=== PATIENT | male | born 1975 | race Caucasian/White ===

== ENCOUNTER 2019-04-26 10:42 | Emergency (ER) | payer SELFPAY ==
[2019-04-26] MEDS ORDERED: NA CHLORIDE 0.9% 1,000 ML ONE (11:17)
[2019-04-26] MEDS ORDERED: ONDANSETRON 4 MG/2 ML VIAL ONE (11:17)
[2019-04-26] MEDS ORDERED: MORPHINE 4 MG/ML SYR ONE (11:17)
[2019-04-26 11:26] LABS: Absolute Lymphocytes (CBC) 2.1 K/uL (0.7-4.9); Basophils % 0.9 % (0-1.3); Hematocrit 48.6 % (39.6-49.0); Lymphocytes % 28.1 % (15.3-44.8); RBC Red Blood Cell Count 5.33 M/uL (4.33-5.43)
[2019-04-26 11:41] LABS: Albumin 4.3 g/dL (3.4-5.0); Bilirubin Direct 0.2 mg/dL (0-0.2); Bilirubin Total 1.1 mg/dL (0.2-1.0); Potassium 3.8 mmol/L (3.5-5.1); Protein, Total 7.8 g/dL (6.4-8.2)
--- NOTE | 2019-04-26 12:17 | RAD REPORT ---
EXAM DESCRIPTION: CT - Abdomen Pelvis W Contrast - 04/26/2019 12:05 pm CLINICAL HISTORY: FLANK PAIN, patient localizes flank pain to the right with nausea and hematuria COMPARISON: None. TECHNIQUE: Biphasic, helical CT imaging of the abdomen and pelvis was performed following 100 ml non -ionic IV contrast. Oral contrast was given. All CT scans are performed using dose optimization technique as appropriate and may include automated exposure control or mA/KV adjustment according to patient size. FINDINGS: No suspicious findings in the lung bases. The liver, spleen, and pancreas show no suspicious findings. Gallbladder and biliary tree are also wi thout suspicious finding. Symmetric renal function is seen with no hydronephrosis or suspicious renal mass. No pyelonephritis o r acute parenchymal process. No bladder abnormalities. No adrenal abnormalities. No dilated bowel loops or bowel wall thickening. Appendix is normal. No acute GI process seen. No free air, free fluid or inflammatory stranding. No hernia, mass or bulky lymphadenopathy. Prosta te gland and seminal vesicles are normal. No acute bone finding. Patient has advanced for age degenerative change at the L5-S1 disc level. IMPRESSION: No hydronephrosis, obstructing calculus or acute finding. No abnormality to explain r ight-sided flank pain. Advanced for age degenerative disc disease at L5-S1.
[2019-04-26] MEDS ORDERED: KETOROLAC 30 MG/ML INJ ONE (15:02)
--- NOTE | 2019-04-26 15:04 | ER ---
Nurse's Notes [facility] Name: Gatito Lyn Age: 43 yrs Sex: Male : 1975 Arrival Date: 04/26/2019 Time: 10:44 Bed 19 Private MD: Diagnosis: Low back pain;Unspecified abdominal pain Presentation: 04/26 10:48 Presenting complaint: Patient states: Right flank pain and nausea x 1 week. Also hb reports bright red blood in stool 3 days ago. Denies fever/diarrhea/urinary s/s. Transition of care: patient was not received from another setting of care. Onset of symptoms was April 18, 2019. Risk Assessment: Do you want to hurt yourself or someone else? Patient reports no desire to harm self or others. Initial Sepsis Screen: Does the patient meet any 2 criteria? No. Patient's initial sepsis screen is negative. Does the patient have a suspected source of infection? No. Patient's initial sepsis screen is negative. Care prior to arrival: None. 10:48 Method Of Arrival: Ambulatory hb 10:48 Acuity: LUCINDA 3 hb Historical: - Allergies: 10:50 No Known Allergies; hb - Home Meds: 10:50 None [Active]; hb - PMHx: 10:50 None; hb - PSHx: 10:50 Arm - Left; hb - Immunization history:: Adult Immunizations up to date. - Social history:: Smoking status: Patient/guardian denies using tobacco. - Ebola Screening: : No symptoms or risks identified at this time. Screenin:50 Abuse screen: Denies threats or abuse. Denies injuries from another. Nutritional mg2 screening: No deficits noted. Tuberculosis screening: No symptoms or risk factors identified. Fall Risk IV access (20 points). Assessment: 11:15 General: Appears in no apparent distress. well groomed, well developed, well nourished, sg Behavior is calm, cooperative, appropriate for age. Pain: Complains of pain in abdomen Quality of pain is described as aching, sharp, stabbing. Neuro: Level of Consciousness is awake, alert, obeys commands, Oriented to person, place, time, Hand Surgeon are equal bilaterally Moves all extremities. Full function Gait is steady, Speech is normal, Facial symmetry appears normal, Pupils are PERRLA. Cardiovascular: Heart tones S1 S2 present Capillary refill is brisk in bilateral fingers Patient's skin is warm and dry. Chest pain is denied. Respiratory: Airway is patent Respiratory effort is even, unlabored, Respiratory pattern is regular, symmetrical. GI: Bowel sounds present X 4 quads. Abd is soft X 4 quads Reports tolerance of fluids, tolerance of food. : No signs and/or symptoms were reported regarding the genitourinary system. EENT: No signs and/or symptoms were reported regarding the EENT system. Derm: Skin is pink, warm \T\ dry. Musculoskeletal: Circulation, motion, and sensation intact. Range of motion: intact in all extremities, Swelling absent. 15:22 Reassessment: Patient appears in no apparent distress at this time. Patient states mg2 feeling better. Patient states symptoms have improved. Vital Signs: 10:50 BP 141 / 91; Pulse 89; Resp 16; Temp 98.4; Pulse Ox 100% on R/A; Weight 76.2 kg; Height hb 6 ft. 1 in. (185.42 cm); Pain 6/10; 12:49 BP 120 / 92; Pulse 67; Resp 18; Pulse Ox 100% on R/A; mg2 14:24 BP 109 / 71; Pulse 55; Resp 18; Pulse Ox 100% on R/A; mg2 15:04 BP 124 / 71; Pulse 56; Resp 18; Temp 98; Pulse Ox 100% on R/A; mg2 10:50 Body Mass Index 22.16 (76.20 kg, 185.42 cm) hb ED Course: 10:44 Patient arrived in ED. as 10:50 Triage completed. hb 10:50 Arm band placed on. hb 10:53 Devante Mercer NP is PHCP. pm1 10:53 Jovani Ruvalcaba MD is Attending Physician. pm1 11:00 Radiology exam delayed due to lab results not completed at this time. (BUN/Creatinine). sw 11:06 Harrison Huizar, RN is Primary Nurse. sg 11:34 Initial lab(s) drawn, by me, sent to lab. Inserted saline lock: 22 gauge in left jb1 antecubital area, using aseptic technique. 14:26 Patient has correct armband on for positive identification. Pulse ox on. NIBP on. Door mg2 closed. Warm blanket given. 14:27 No provider procedures requiring assistance completed. mg2 15:22 IV discontinued, intact, bleeding controlled, No redness/swelling at site. Pressure mg2 dressing applied. Administered Medications: 11:15 Drug: NS 0.9% 1000 ml Route: IV; Rate: 1000 ml; Site: left antecubital; sg 15:04 Follow up: Response: No adverse reaction; IV Status: Completed infusion; IV Intake: mg2 1000ml 11:18 Drug: Zofran 4 mg Route: IVP; Site: left antecubital; sg 12:50 Follow up: Response: No adverse reaction mg2 11:20 Drug: morphine 4 mg {Note: RASS 0.} Route: IVP; Site: left antecubital; sg 12:50 Follow up: Response: No adverse reaction; Marked relief of symptoms; RASS: Alert and mg2 Calm (0) 15:04 Drug: TORadol 30 mg Route: IVP; Site: left antecubital; mg2 15:22 Follow up: Response: No adverse reaction; Marked relief of symptoms mg2 Intake: 15:04 IV: 1000ml; Total: 1000ml. mg2 Outcome: 15:03 Discharge ordered by . pm1 15:22 Discharged to home ambulatory. mg2 15:22 Condition: good 15:22 Discharge instructions given to patient, Instructed on discharge instructions, follow up and referral plans. medication usage, Demonstrated understanding of instructions, follow-up care, medications, Prescriptions given X 3. 15:23 Patient left the ED. mg2 Signatures: Darek Garcia jb1 Harrison Huizar, PARTH ALBA sg Alma Delia Booker Shannon sw Marinas, Patrick, STATISTICAL CLERK STATISTICAL CLERK pm1 Cira Miller RN RN Marcos Layton RN RN mg2 Corrections: (The following items were deleted from the chart) 12:55 12:49 Pulse 67bpm; Resp 18bpm; Pulse Ox 100% RA; mg2 mg2
--- NOTE | 2019-04-26 15:05 | EDPHYS ---
Physician Documentation [facility] Name: Gatito Lyn Age: 43 yrs Sex: Male : 1975 Arrival Date: 04/26/2019 Time: 10:44 Bed 19 Private MD: FRANKY Physician Jovani Ruvalcaba HPI: 04/26 12:00 This 43 yrs old Male presents to ER via Ambulatory with complaints of pm1 Abdominal Pain. 12:00 The patient complains of pain in the left low back. The pain radiates to the left lower pm1 quadrant. Onset: The symptoms/episode began/occurred 1 week(s) ago. Modifying factors: The symptoms are alleviated by nothing. the symptoms are aggravated by nothing. Associated signs and symptoms: Pertinent positives: nausea, vomiting, Pertinent negatives: diarrhea, dysuria, fever. Severity of pain: in the emergency department the pain is actually worse. The patient has not experienced similar symptoms in the past. The patient has not recently seen a physician. Historical: - Allergies: 10:50 No Known Allergies; hb - Home Meds: 10:50 None [Active]; hb - PMHx: 10:50 None; hb - PSHx: 10:50 Arm - Left; hb - Immunization history:: Adult Immunizations up to date. - Social history:: Smoking status: Patient/guardian denies using tobacco. - Ebola Screening: : No symptoms or risks identified at this time. ROS: 12:00 Constitutional: Negative for fever, chills, and weight loss, Eyes: Negative for injury, pm1 pain, redness, and discharge, ENT: Negative for injury, pain, and discharge, Neck: Negative for injury, pain, and swelling, Cardiovascular: Negative for chest pain, palpitations, and edema, Respiratory: Negative for shortness of breath, cough, wheezing, and pleuritic chest pain, Abdomen/GI: Negative for abdominal pain, nausea, vomiting, diarrhea, and constipation. 12:00 : Negative for injury, bleeding, discharge, and swelling, MS/Extremity: Negative for injury and deformity, Skin: Negative for injury, rash, and discoloration, Neuro: Negative for headache, weakness, numbness, tingling, and seizure. 12:00 Back: Positive for flank pain, on the left. Exam: 12:00 Constitutional: This is a well developed, well nourished patient who is awake, alert, pm1 and in no acute distress. Head/Face: Normocephalic, atraumatic. Neck: Trachea midline, no thyromegaly or masses palpated, and no cervical lymphadenopathy. Supple, full range of motion without nuchal rigidity, or vertebral point tenderness. No Meningismus. Chest/axilla: Normal chest wall appearance and motion. Nontender with no deformity. No lesions are appreciated. Cardiovascular: Regular rate and rhythm with a normal S1 and S2. No gallops, murmurs, or rubs. Normal PMI, no JVD. No pulse deficits. Respiratory: Lungs have equal breath sounds bilaterally, clear to auscultation and percussion. No rales, rhonchi or wheezes noted. No increased work of breathing, no retractions or nasal flaring. Abdomen/GI: Soft, non-tender, with normal bowel sounds. No distension or tympany. No guarding or rebound. No evidence of tenderness throughout. 12:00 Skin: Warm, dry with normal turgor. Normal color with no rashes, no lesions, and no evidence of cellulitis. MS/ Extremity: Pulses equal, no cyanosis. Neurovascular intact. Full, normal range of motion. 12:00 Back: pain, that is mild, of the left low back, normal spinal alignment noted, CVA tenderness, is absent, vertebral tenderness, is not appreciated. 12:00 Neuro: Orientation: is normal, Motor: is normal, moves all fours, Sensation: is normal, no obvious gross deficits. Vital Signs: 10:50 BP 141 / 91; Pulse 89; Resp 16; Temp 98.4; Pulse Ox 100% on R/A; Weight 76.2 kg; Height hb 6 ft. 1 in. (185.42 cm); Pain 6/10; 12:49 BP 120 / 92; Pulse 67; Resp 18; Pulse Ox 100% on R/A; mg2 14:24 BP 109 / 71; Pulse 55; Resp 18; Pulse Ox 100% on R/A; mg2 15:04 BP 124 / 71; Pulse 56; Resp 18; Temp 98; Pulse Ox 100% on R/A; mg2 10:50 Body Mass Index 22.16 (76.20 kg, 185.42 cm) MDM: 10:53 Patient medically screened. pm1 15:02 Data reviewed: vital signs. Data interpreted: Pulse oximetry: on room air is 100 %. pm1 Interpretation: normal. 15:02 Counseling: I had a detailed discussion with the patient and/or guardian regarding: the pm1 historical points, exam findings, and any diagnostic results supporting the discharge/admit diagnosis, lab results, radiology results, the need for outpatient follow up, to return to the emergency department if symptoms worsen or persist or if there are any questions or concerns that arise at home. 04/26 10:57 Order name: Basic Metabolic Panel; Complete Time: 12:00 pm1 04/26 10:57 Order name: CBC with Diff pm1 04/26 10:57 Order name: Creatinine for Radiology; Complete Time: 12:00 pm1 04/26 10:57 Order name: Hepatic Function; Complete Time: 12:00 pm1 04/26 10:57 Order name: Lipase; Complete Time: 12:00 pm1 04/26 15:01 Order name: Urine Dipstick--Ancillary (enter results) em1 04/26 10:57 Order name: IV Saline Lock; Complete Time: 11:24 pm1 04/26 10:57 Order name: Labs collected and sent; Complete Time: 11:24 pm1 04/26 10:57 Order name: CT Abd/Pelvis - IV Contrast Only pm1 04/26 14:42 Order name: CT; Complete Time: 14:54 EDMS 04/26 10:57 Order name: Urine Dipstick-Ancillary (obtain specimen); Complete Time: 15:00 pm1 Administered Medications: 11:15 Drug: NS 0.9% 1000 ml Route: IV; Rate: 1000 ml; Site: left antecubital; sg 15:04 Follow up: Response: No adverse reaction; IV Status: Completed infusion; IV Intake: mg2 1000ml 11:18 Drug: Zofran 4 mg Route: IVP; Site: left antecubital; sg 12:50 Follow up: Response: No adverse reaction mg2 11:20 Drug: morphine 4 mg {Note: RASS 0.} Route: IVP; Site: left antecubital; sg 12:50 Follow up: Response: No adverse reaction; Marked relief of symptoms; RASS: Alert and mg2 Calm (0) 15:04 Drug: TORadol 30 mg Route: IVP; Site: left antecubital; mg2 15:22 Follow up: Response: No adverse reaction; Marked relief of symptoms mg2 Disposition: 15:32 Co-signature as Attending Physician, Jovani Ruvalcaba MD I agree with the assessment and [facility] plan of care. Disposition: 04/26/19 15:03 Discharged to Home. Impression: Low back pain, Unspecified abdominal pain. - Condition is Stable. - Discharge Instructions: Abdominal Pain, Adult, Flank Pain, Adult. - Prescriptions for Zofran 4 mg Oral Tablet - take 1 tablet by ORAL route every 12 hours As needed; 20 tablet. Tylenol- Codeine #3 300-30 mg Oral Tablet - take 2 tablets by ORAL route every 6 hours As needed; 20 tablet. Cyclobenzaprine 10 mg Oral Tablet - take 1 tablet by ORAL route every 8 hours As needed; 30 tablet. - Medication Reconciliation Form, Thank You Letter, Antibiotic Education, Prescription Opioid Use form. - Follow up: Emergency Department; When: As needed; Reason: Worsening of condition. Follow up: Private Physician; When: 2 - 3 days; Reason: Recheck today's complaints, Continuance of care, Re-evaluation by your physician. - Problem is new. - Symptoms have improved. Signatures: Dispatcher [employer] EDMS Harrison Huizar RN RN sg Anderson, Corey, MD MD cha Marinas, Patrick, OPHTHALMIC SURGICAL ASSISTANT OPHTHALMIC SURGICAL ASSISTANT pm1 Cira Miller RN RN Marcos Layton RN RN mg2 Corrections: (The following items were deleted from the chart) 15:23 15:03 04/26/2019 15:03 Discharged to Home. Impression: Low back pain; Unspecified mg2 abdominal pain. Condition is Stable. Forms are Medication Reconciliation Form, Thank You Letter, Antibiotic Education, Prescription Opioid Use. Follow up: Emergency Department; When: As needed; Reason: Worsening of condition. Follow up: Private Physician; When: 2 - 3 days; Reason: Recheck today's complaints, Continuance of care, Re-evaluation by your physician. Problem is new. Symptoms have improved. pm1
[2019-04-26 16:29] LABS: Urine Blood TRACE (NEG); Urine Glucose NEGATIVE (NEG); Urine Protein NEGATIVE (NEG); Urine Specific Gravity <1.005 (1.005-1.030)
== END 2019-04-26 15:23 | disposition home or self-care (01) ==
LOC: ER 10:42
DX: R10.32 Left lower quadrant pain (principal)
CPT/HCPCS: 36415; 74177; 80048; 80076; 81003; 83690; 85025; 96361; 96374; 96375; 99284; J2405; J7030; Q9967

== ENCOUNTER 2019-07-06 08:03 | Emergency (ER) | payer SELFPAY ==
--- OUTSIDE RECORDS SUMMARY | 2019-07-06 08:06 | XMS REPORT ---
:1975 [facility] Address [address] [place] [address] Care Team Providers Name Role Phone LINDA EVETTE Gannon Unavailable Unavailable Payers Payer Name Policy Type Policy Number Effective Date Expiration Date Problems This patient has no known problems. Allergies, Adverse Reactions, Alerts Allergy Allergy Status Severity Reaction(s) Onset Inactive Treating Comments Name Type Date Date Clinician No Known DA Active U 2018-10 Allergies - 00:00:0 0 No Known DA Active U 2018-08 Allergies - 00:00:0 0 Medications This patient has no known medications. Results Test Description Test Time Test Comments Text Results Atomic Results Result Comments URINALYSIS COMPLETE 2018-11-10 12:02:00 Test Item Value Reference Range Comments UA COLOR (test code=COLU) DARK YELLOW YELLOW UA APPEARANCE (test code=APPU) SLIGHTLY CLOUDY CLEAR UA GLUCOSE DIPSTICK (test code=DGLUU) NEGATIVE mg/dL NEGATIVE UA BILIRUBIN DIPSTICK (test code=BILU) NEGATIVE mg/dL NEGATIVE UA KETONE DIPSTICK (test code=KETU) 20 (Small) mg/dL NEGATIVE UA SPECIFIC GRAVITY (test code=SGU) 1.029 1.001-1.035 UA BLOOD DIPSTICK (test code=ZACK) Negative NEGATIVE UA PH DIPSTICK (test code=CYNDI) 8.0 5.0-8.0 UA PROTEIN DIPSTICK (test code=PROU) 30 (1+) mg/dL NEGATIVE UA UROBILINIOGEN DIPSTICK (test code=URO) 4.0 (2+) mg/dL NEGATIVE UA NITRITE DIPSTICK (test code=STUART) NEGATIVE NEGATIVE UA LEUKOCYTE ESTERASE W REFLEX (test code=LEUUR) NEGATIVE NEGATIVE UA WBC (test code=WBCU) 0-5 #/HPF 0-5 UA RBC (test code=RBCU) 0-2 #/HPF 0-5 UA EPITHELIAL CELLS (test code=EPIU) FEW per HPF FEW UA MUCUS (test code=MUCU) MANY #/LPF FEW Urine Source? Clean CatchURINALYSIS [id number] 11:54:00 Test Item Value Reference Range Comments UA COLOR (test code=COLU) DARK YELLOW YELLOW UA APPEARANCE (test code=APPU) SLIGHTLY CLOUDY CLEAR UA GLUCOSE DIPSTICK (test code=DGLUU) NEGATIVE mg/dL NEGATIVE UA BILIRUBIN DIPSTICK (test code=BILU) NEGATIVE mg/dL NEGATIVE UA KETONE DIPSTICK (test code=KETU) 20 (Small) mg/dL NEGATIVE UA SPECIFIC GRAVITY (test code=SGU) 1.029 1.001-1.035 UA BLOOD DIPSTICK (test code=ZACK) Negative NEGATIVE UA PH DIPSTICK (test code=CYNDI) 8.0 5.0-8.0 UA PROTEIN DIPSTICK (test code=PROU) 30 (1+) mg/dL NEGATIVE UA UROBILINIOGEN DIPSTICK (test 4.0 (2+) mg/dL NEGATIVE code=URO) UA NITRITE DIPSTICK (test code=STUART) NEGATIVE NEGATIVE UA LEUKOCYTE ESTERASE W REFLEX (test NEGATIVE NEGATIVE code=LEUUR) UA WBC (test code=WBCU) per HPF 0-5 Urine Source? Clean CatchBASIC METABOLIC [id number] 10:00:00 Test Item Value Reference Range Comments SODIUM (test code=NA) 138 mmol/L 136-145 POTASSIUM (test code=K) 3.8 mmol/L 3.5-5.1 CHLORIDE (test code=CL) 106.0 mmol/L 98-107 CARBON DIOXIDE (test 24.0 mmol/L 21-32 code=CO2) ANION GAP (test code=GAP) 11.8 10-20 GLUCOSE (test code=GLU) 106 mg/dL 74-106 BLOOD UREA NITROGEN (test 13 mg/dL 7-18 code=BUN) GLOMERULAR FILTRATION RATE > 60 mL/min >=60 Estimated GFR by using (test code=GFR) Modified MDRD formula.Chronic kidney disease is defined as either kidney damageor GFR <60 mL/min/1.73 m2 for >3 months. CREATININE (test code=CREAT) 1.00 mg/dL 0.7-1.3 BUN/CREATININE RATIO (test 12.6 1020 code=BUN/CREA) CALCIUM (test code=CA) 9.1 mg/dL 8.5-10.1 HEPATIC FUNCTION [id number] 10:00:00 Test Item Value Reference Range Comments TOTAL PROTEIN (test code=PROT) 7.9 gram/dL 6.4-8.2 ALBUMIN (test code=ALB) 4.3 g/dL 3.4-5.0 GLOBULIN (test code=GLOB) 3.6 gram/dL 2.7-4.2 ALBUMIN/GLOBULIN RATIO (test 1.2 0.75-1.50 code=A/G) BILIRUBIN TOTAL (test 0.80 mg/dL 0.0-1.0 code=BILT) BILIRUBIN DIRECT (test 0.18 mg/dL 0.0-0.20 code=BILD) SGOT/AST (test code=AST) 15 IUnit/L 15-37 SGPT/ALT (test code=ALT) 24 IUnit/L 12-78 ALKALINE PHOSPHATASE TOTAL 110 IUnit/L 45-117 Note change in reference (test code=ALKP) range due to change in reagent. [id number] 10:00:00 Test Item Value Reference Range Comments LIPASE (test code=LIP) 96 U/L 73.0-393.0 BASIC METABOLIC [id number] 09:53:00 Test Item Value Reference Range Comments SODIUM (test code=NA) 138 mmol/L 136-145 POTASSIUM (test code=K) 3.8 mmol/L 3.5-5.1 CHLORIDE (test code=CL) 106.0 mmol/L 98-107 CARBON DIOXIDE (test code=CO2) mmol/L 21-32 ANION GAP (test code=GAP) 10-20 GLUCOSE (test code=GLU) mg/dL 74-106 BLOOD UREA NITROGEN (test code=BUN) mg/dL 7-18 GLOMERULAR FILTRATION RATE (test code=GFR) mL/min >=60 CREATININE (test code=CREAT) mg/dL 0.7-1.3 BUN/CREATININE RATIO (test code=BUN/CREA) 10-20 CALCIUM (test code=CA) mg/dL 8.5-10.1 HEPATIC FUNCTION [id number] 09:53:00 Test Item Value Reference Range Comments TOTAL PROTEIN (test code=PROT) gram/dL 6.4-8.2 ALBUMIN (test code=ALB) g/dL 3.4-5.0 GLOBULIN (test code=GLOB) gram/dL 2.7-4.2 ALBUMIN/GLOBULIN RATIO (test code=A/G) 0.75-1.50 BILIRUBIN TOTAL (test code=BILT) mg/dL 0.0-1.0 BILIRUBIN DIRECT (test code=BILD) mg/dL 0.0-0.20 SGOT/AST (test code=AST) IUnit/L 15-37 SGPT/ALT (test code=ALT) IUnit/L 12-78 ALKALINE PHOSPHATASE TOTAL (test code=ALKP) IUnit/L 45-117 [id number] 09:53:00 Test Item Value Reference Range Comments LIPASE (test code=LIP) U/L 73.0-393.0 CBC W/O [id number] 09:43:00 Test Item Value Reference Range Comments WHITE BLOOD CELL (test code=WBC) 6.8 K/mm3 4.5-12.5 RED BLOOD CELL (test code=RBC) 5.48 mill/mm3 4.0-5.8 HEMOGLOBIN (test code=HGB) 16.8 gram/dL 13.0-17.5 HEMATOCRIT (test code=HCT) 48.8 % 42.0-52.0 MEAN CELL VOLUME (test code=MCV) 89.1 fL 80-98 MEAN CELL HGB (test code=MCH) 30.7 picogram 27.0-33.0 MEAN CELL HGB CONCETRATION (test code=MCHC) 34.4 gram/dL 33.0-36.0 RED CELL DISTRIBUTION WIDTH (test code=RDW) 11.5 % 11.6-16.2 PLATELET COUNT (test code=PLT) 223 K/mm3 150-450 MEAN PLATELET VOLUME (test code=MPV) 8.4 fL 6.7-11.0 CBC W/O [id number] 09:41:00 Test Item Value Reference Range Comments WHITE BLOOD CELL (test code=WBC) K/mm3 4.5-12.5 RED BLOOD CELL (test code=RBC) mill/mm3 4.0-5.8 HEMOGLOBIN (test code=HGB) 16.8 gram/dL 13.0-17.5 HEMATOCRIT (test code=HCT) 48.8 % 42.0-52.0 MEAN CELL VOLUME (test code=MCV) fL 80-98 MEAN CELL HGB (test code=MCH) picogram 27.0-33.0 MEAN CELL HGB CONCETRATION (test code=MCHC) gram/dL 33.0-36.0 RED CELL DISTRIBUTION WIDTH (test code=RDW) % 11.6-16.2 PLATELET COUNT (test code=PLT) K/mm3 150-450 MEAN PLATELET VOLUME (test code=MPV) fL 6.7-11.0 - CT ABD PELVIS [id number] 10:43:00 Name: GUNNER WYNNDENISHA Candelario [facility] : 1975 Age/S: 43 / M [address] [facility] Unit #: [id number] Loc: [place] [address] Phys: Pietro Wallace MD Acct: [id number] Dis Date: Status : REG ER PHONE #: [phone] Exam Date: 09/22/2018 1005 FAX #: [phone] Reason: L sidedabd pain EXAMS: CPTCODE: [id number] CT ABD PELVIS W/CONT 94894 HISTORY: Left-sided abdominal pain. COMPARISON: None available. CT abdomen and pelvis with IV contrast: 100 mL of Isovue-370. Automated exposure control. CT of abdomen: The lung bases are clear. The liver is enhancing homogeneously. No discrete mass. Gallbladder is without radiopaque stones. The spleen is unremarkable. The stomach distended incompletely with thickened distal esophagus. Pancreas enhances homogeneously. Unremarkable adrenals. Kidneys are free from hydroureteronephrosis. Homogeneous enhancement. Bilateral excretion. No pathologic adenopathy. Well-opacified abdominal and pelvic vasculature. No bowel obstruction or colitis or diverticulitis or enteritis. CT pelvis: Appendix is normal. Pelvic bowel loops are unobstructed. Unremarkable urinary bladder. The prostate is not enlarged. No pelvic pathologic adenopathy. No free fluid or free air or abscess. Subcutaneous tissues and musculature are normal in appearance. No lytic or blastic lesions are noted within the bony skeleton. Bone island within the left acetabulum. IMPRESSION: No acute intra-abdominal or intrapelvic pathology. PAGE 1 Signed Report (CONTINUED) Name: CHRISTOPHER WYNN [facility] : 1975 Age/S: 43 / M [address] [facility] Unit #: [id number] Loc: [place] [address] Phys: Pietro Wallace MD Acct: [id number] Dis Date: Status: REG ER PHONE #: [phone] Exam Date: 09/22/2018 1006 FAX #: [phone] Reason: L sided abd pain EXAMS: CPT CODE : [id number] CT ABD PELVIS W/CONT 19023 < Continued> at 1043 Reported and signed by: Jourdan Stark M.D. CC: Pietro Wallace MD Technologist:RT Sushila(R),CT CTDI: DLP: Trnscb Date/Time: 09/22/2018 (1043) [email or web address] Orig Print D/T: S: 09/22/2018 (1046) CTDI: DLP: PAGE 2 Signed [id number] 09:49:00 Test Item Value Reference Range Comments TROPONIN-I (test code=TROPI) <0.015 ng/mL 0-0.045 BASIC METABOLIC [id number] 09:42:00 Test Item Value Reference Range Comments SODIUM (test code=NA) 141 mmol/L 136-145 POTASSIUM (test code=K) 4.2 mmol/L 3.5-5.1 CHLORIDE (test code=CL) 106.0 mmol/L 98-107 CARBON DIOXIDE (test 29.0 mmol/L 21-32 code=CO2) ANION GAP (test code=GAP) 10.2 10-20 GLUCOSE (test code=GLU) 103 mg/dL 74-106 BLOOD UREA NITROGEN (test 9 mg/dL 7-18 code=BUN) GLOMERULAR FILTRATION RATE > 60 mL/min >=60 Estimated GFR by using (test code=GFR) Modified MDRD formula.Chronic kidney disease is defined as either kidney damageor GFR <60 mL/min/1.73 m2 for >3 months. CREATININE (test code=CREAT) 0.90 mg/dL 0.7-1.3 BUN/CREATININE RATIO (test 10.1 10-20 code=BUN/CREA) CALCIUM (test code=CA) 8.6 mg/dL 8.5-10.1 HEPATIC FUNCTION [id number] 09:42:00 Test Item Value Reference Range Comments TOTAL PROTEIN (test code=PROT) 8.0 gram/dL 6.4-8.2 ALBUMIN (test code=ALB) 4.1 g/dL 3.4-5.0 GLOBULIN (test code=GLOB) 3.9 gram/dL 2.7-4.2 ALBUMIN/GLOBULIN RATIO (test 1.1 0.75-1.50 code=A/G) BILIRUBIN TOTAL (test 0.30 mg/dL 0.0-1.0 code=BILT) BILIRUBIN DIRECT (test 0.08 mg/dL 0.0-0.20 code=BILD) SGOT/AST (test code=AST) 46 IUnit/L 15-37 SGPT/ALT (test code=ALT) 71 IUnit/L 12-78 ALKALINE PHOSPHATASE TOTAL 136 IUnit/L 45-117 Note change in reference (test code=ALKP) range due to change in reagent. [id number] 09:42:00 Test Item Value Reference Range Comments LIPASE (test code=LIP) 99 U/L 73.0-393.0 BASIC METABOLIC [id number] 09:35:00 Test Item Value Reference Range Comments SODIUM (test code=NA) 141 mmol/L 136-145 POTASSIUM (test code=K) 4.2 mmol/L 3.5-5.1 CHLORIDE (test code=CL) 106.0 mmol/L 98-107 CARBON DIOXIDE (test code=CO2) mmol/L 21-32 ANION GAP (test code=GAP) 10-20 GLUCOSE (test code=GLU) mg/dL 74-106 BLOOD UREA NITROGEN (test code=BUN) mg/dL 7-18 GLOMERULAR FILTRATION RATE (test code=GFR) mL/min >=60 CREATININE (test code=CREAT) mg/dL 0.7-1.3 BUN/CREATININE RATIO (test code=BUN/CREA) 10-20 CALCIUM (test code=CA) mg/dL 8.5-10.1 HEPATIC FUNCTION [id number] 09:35:00 Test Item Value Reference Range Comments TOTAL PROTEIN (test code=PROT) gram/dL 6.4-8.2 ALBUMIN (test code=ALB) g/dL 3.4-5.0 GLOBULIN (test code=GLOB) gram/dL 2.7-4.2 ALBUMIN/GLOBULIN RATIO (test code=A/G) 0.75-1.50 BILIRUBIN TOTAL (test code=BILT) mg/dL 0.0-1.0 BILIRUBIN DIRECT (test code=BILD) mg/dL 0.0-0.20 SGOT/AST (test code=AST) IUnit/L 15-37 SGPT/ALT (test code=ALT) IUnit/L 12-78 ALKALINE PHOSPHATASE TOTAL (test code=ALKP) IUnit/L 45-117 [id number] 09:35:00 Test Item Value Reference Range Comments LIPASE (test code=LIP) U/L 73.0-393.0 CBC W/O [id number] 09:16:00 Test Item Value Reference Range Comments WHITE BLOOD CELL (test code=WBC) 6.6 K/mm3 4.5-12.5 RED BLOOD CELL (test code=RBC) 5.23 mill/mm3 4.0-5.8 HEMOGLOBIN (test code=HGB) 16.2 gram/dL 13.0-17.5 HEMATOCRIT (test code=HCT) 49.4 % 42.0-52.0 MEAN CELL VOLUME (test code=MCV) 94.5 fL 80-98 MEAN CELL HGB (test code=MCH) 31.0 picogram 27.0-33.0 MEAN CELL HGB CONCETRATION (test code=MCHC) 32.8 gram/dL 33.0-36.0 RED CELL DISTRIBUTION WIDTH (test code=RDW) 11.8 % 11.6-16.2 PLATELET COUNT (test code=PLT) 214 K/mm3 150-450 MEAN PLATELET VOLUME (test code=MPV) 8.5 fL 6.7-11.0 URINALYSIS [id number] 08:56:00 Test Item Value Reference Range Comments UA COLOR (test code=COLU) STRAW YELLOW UA APPEARANCE (test code=APPU) CLEAR CLEAR UA GLUCOSE DIPSTICK (test code=DGLUU) NEGATIVE mg/dL NEGATIVE UA BILIRUBIN DIPSTICK (test code=BILU) NEGATIVE mg/dL NEGATIVE UA KETONE DIPSTICK (test code=KETU) Negative mg/dL NEGATIVE UA SPECIFIC GRAVITY (test code=SGU) 1.006 1.001-1.035 UA BLOOD DIPSTICK (test code=ZACK) Negative NEGATIVE UA PH DIPSTICK (test code=CYNDI) 7.0 5.0-8.0 UA PROTEIN DIPSTICK (test code=PROU) Negative mg/dL NEGATIVE UA UROBILINIOGEN DIPSTICK (test code=URO) NEGATIVE mg/dL NEGATIVE UA NITRITE DIPSTICK (test code=STUART) NEGATIVE NEGATIVE UA LEUKOCYTE ESTERASE W REFLEX (test NEGATIVE NEGATIVE code=LEUUR) UA WBC (test code=WBCU) 0-5 #/HPF 0-5 Urine Source? Clean CatchURINALYSIS [id number] 08:54:00 Test Item Value Reference Range Comments UA COLOR (test code=COLU) STRAW YELLOW UA APPEARANCE (test code=APPU) CLEAR CLEAR UA GLUCOSE DIPSTICK (test code=DGLUU) NEGATIVE mg/dL NEGATIVE UA BILIRUBIN DIPSTICK (test code=BILU) NEGATIVE mg/dL NEGATIVE UA KETONE DIPSTICK (test code=KETU) Negative mg/dL NEGATIVE UA SPECIFIC GRAVITY (test code=SGU) 1.006 1.001-1.035 UA BLOOD DIPSTICK (test code=ZACK) Negative NEGATIVE UA PH DIPSTICK (test code=CYNDI) 7.0 5.0-8.0 UA PROTEIN DIPSTICK (test code=PROU) Negative mg/dL NEGATIVE UA UROBILINIOGEN DIPSTICK (test code=URO) NEGATIVE mg/dL NEGATIVE UA NITRITE DIPSTICK (test code=STUART) NEGATIVE NEGATIVE UA LEUKOCYTE ESTERASE W REFLEX (test NEGATIVE NEGATIVE code=LEUUR) UA WBC (test code=WBCU) per HPF 0-5 Urine Source? Clean Catch- XR CHEST 1 [id number] 08:23:00 FAX: Pietro Wallace MD [phone] [place]: St: REG Name: CHRISTOPHER WYNN [facility] : 1975 Age/S: 43/M [address] [facility] Unit#: [id number] Loc: [place] [address] Phys: Pietro Wallace MD Acct: [id number] Dis Date: Status: REG ER PHONE #: [phone] Exam Date: 2018 FAX #: [phone] Reason: cough EXAMS: CPT CODE: [id number] XR CHEST 1 V 04464 HISTORY: Abdominal pain. COMPARISON: None available. No acute infiltrates, effusion or congestion is noted. The cardiac and mediastinal silhouette are within normal limits. IMPRESSION: No acute infiltrates, effusion or congestion. at 0823 Reported and signed by: Jourdan Stark M.D. CC: Pietro Wallace MD Technologist: Radha Adame(Norman); STUDENT TECHNOLOGIST Trnscrd Date/Time/By: 09/22/2018 (0823) : By: [email or web address] Orig Print D/T: S: (2426) PAGE 1 Signed ReportCHEST 2 VIEWS [place] [address] Patient Name: CHRISTOPHER WYNN MR #: [id number] : 1975 Age/Sex: 42/M Req #: [id number] Adm Physician: Ordered by: RON AVITIA BRONZE CHASER Report #: [id number] Location: ER Room/Bed: Procedure: [id number] DX/CHEST 2 VIEWS Exam Date: 09/26/17 Exam Time: 1819 REPORT STATUS : Signed EXAMINATION: Chest, CHEST 2 VIEWS INDICATION: Chest pain COMPARISON: None FINDINGS: LINES: None. Heart: Normal cardiac silhouette. Vascular: The pulmonary vasculature is within normal limits. Mediastinum: No mediastinal, hilar, or axillary mass or lymphadenopathy. Lungs: No parenchymal mass. No focal consolidation. Bilateral nipple shadows. Pleura: No pleural effusion. No pneumothorax. Bones: No acute osseous abnormality. Soft tissues: Normal. Impression: Noacute radiographic abnormality. Signed by: Dr. Brandy Mars M.D. on 09/26/2017 6:33 PM Dictated By: BRANDY MARS MD 32 Transcribed By: SHRAVAN on 09/26/171832 COPY TO: RON AVITIA NP
--- OUTSIDE RECORDS SUMMARY | 2019-07-06 08:06 | XMS REPORT | Continuity of Care Document ---
:1975 Author Organization [facility] Address [address] [place] [address] Phone Unavailable Care Team Providers Name Role Phone NO, PCP Primary Care Physician Unavailable Insurance Providers Guarantor Gatito Lyn Address [address] [place] [address] Email [facility] Policy Number [id number] Subscriber's Name Gatito Lyn Relationship 18 Self / Same As Patient Advance Directives Directive Response Recorded Date/Time Does the patient have an advance directive? No 12/18/16 3:41pm If yes, is advance directive on file with [facility]? No 12/18/16 3:41pm If not on file with [facility] will patient provide a copy? No 12/18/16 3:41pm Do you have a Directive to Physician? No 09/26/17 7:01pm Do you have a Medical Power of Contractor Field Hauling? No 09/26/17 7:01pm Do you have an out of hospital Do Not Resuscitate Order? No 09/26/17 7:01pm Do you have any special needs we should be aware of? No 09/26/17 7:01pm Do you have a support person here with you today? Yes 09/26/17 7:01pm Did patient receive Notice of Privacy Practices? Yes 09/26/17 7:01pm Did patient receive patient rights and responsibilities? Yes 09/26/17 7:01pm Problems No problem information available. Medications No medication information available. Social History Smoking Status Start Date Stop Date Current every day smoker Hospital Discharge Instructions No hospital discharge instruction information available. Plan of Care Discharge Date 09/26/17 9:12pm Disposition HOME, SELF-CARE Condition at Discharge Stable Instructions/Education Provided Bronchitis (Acute) - Adult Forms Provided Work/School Excuse Prescriptions See Medication Section Referrals VISHAL SMALLS MD Address: [address] [place] [id number] Additional Instructions/Education 1. increase oral fluids 2. tylenol and motrin as needed for fever 3. follow up with your dovctor in 1-2 days without fail 4. return to ed as needed Functional Status No functional status information available. Allergies, Adverse Reactions, Alerts No known allergies. Immunizations No immunization information available. Vital Signs Acute Vital Signs Vital Response Date/Time Temperature (Fahrenheit) 97.8 degrees F (97.6 - 99.5) 09/26/2017 9:06pm Pulse Pulse Rate (adult) 88 bpm (60 - 90) 09/26/2017 9:06pm Respiratory Rate 16 bpm (12 - 24) 09/26/2017 9:06pm Blood Pressure 128/74 mm Hg 09/26/2017 9:06pm Height 6 ft 0 in 09/26/2017 5:43pm Weight 150 lb 09/26/2017 5:43pm Body Mass Index 20.3 kg/m^2 09/26/2017 5:43pm Results Laboratory Results Test Name Result Units Flags Reference Collection Result Comments Date/Time Date/Time Urine Color STRAW YELLOW 12/18/2016 12/18/2016 2:25pm 3:29pm Urine Clarity CLEAR CLEAR 12/18/2016 12/18/2016 2:25pm 3:29pm Urine Specific 1.020 1.010-1.025 12/18/2016 12/18/2016 [place] 2:25pm 3:29pm Urine pH 6.5 5 - 7 12/18/2016 12/18/2016 2:25pm 3:29pm Urine Leukocyte NEGATIVE NEGATIVE 12/18/2016 12/18/2016 [place] 2:25pm 3:29pm Urine Nitrite NEGATIVE NEGATIVE 12/18/2016 12/18/2016 2:25pm 3:29pm Urine Protein NEGATIVE NEGATIVE 12/18/2016 12/18/2016 2:25pm 3:29pm Urine Glucose (UA) NEGATIVE NEGATIVE 12/18/2016 12/18/2016 2:25pm 3:29pm Urine Ketones NEGATIVE NEGATIVE 12/18/2016 12/18/2016 2:25pm 3:29pm Urine Urobilinogen 0.2 mg/dL 0.2 - 1 12/18/2016 12/18/2016 2:25pm 3:29pm Urine Bilirubin NEGATIVE NEGATIVE 12/18/2016 12/18/2016 2:25pm 3:29pm Urine Blood TRACE H NEGATIVE 12/18/2016 12/18/2016 2:25pm 3:29pm Urine WBC 0-5 /HPF 0-5 12/18/2016 12/18/2016 2:25pm 3:44pm Urine RBC 6-10 /HPF H 0-5 12/18/2016 12/18/2016 2:25pm 3:44pm Urine Bacteria RARE /HPF NONE 12/18/2016 12/18/2016 2:25pm 3:44pm Urine Epithelial RARE /LPF NONE 12/18/2016 12/18/2016 Cells 2:25pm 3:44pm Amylase Level 69 U/L 25-125 12/18/2016 12/18/2016 3:53pm 4:28pm Lipase 27 U/L 8-78 12/18/2016 12/18/2016 3:53pm 4:28pm White Blood Count 11.01 x10e3/u H 4.8-10.8 09/26/2017 09/26/2017 L 5:51pm 6:26pm Red Blood Count 5.18 x10e6/u 4.3-5.7 09/26/2017 09/26/2017 L 5:51pm 6:26pm Hemoglobin 16.6 g/dL 14.0-18.0 09/26/2017 09/26/2017 5:51pm 6:26pm Hematocrit 47.3 % 38.2-49.6 09/26/2017 09/26/2017 5:51pm 6:26pm Mean Corpuscular 91.3 fL 81-99 09/26/2017 09/26/2017 Volume 5:51pm 6:26pm Mean Corpuscular 32.0 pg 28-32 09/26/2017 09/26/2017 Hemoglobin 5:51pm 6:26pm Mean Corpuscular 35.1 g/dL H 31-35 09/26/2017 09/26/2017 Hemoglobin Concent 5:51pm 6:26pm Red Cell 11.6 % L 11.7-14.4 09/26/2017 09/26/2017 Distribution Width 5:51pm 6:26pm Platelet Count 145 x10e3/u 140-360 09/26/2017 09/26/2017 L 5:51pm 6:26pm Neutrophils (%) 69.3 % 38.7-80.0 09/26/2017 09/26/2017 (Auto) 5:51pm 6:26pm Lymphocytes (%) 19.9 % 18.0-39.1 09/26/2017 09/26/2017 (Auto) 5:51pm 6:26pm Monocytes (%) 10.0 % 4.4-11.3 09/26/2017 09/26/2017 (Auto) 5:51pm 6:26pm Eosinophils (%) 0.3 % 0.0-6.0 09/26/2017 09/26/2017 (Auto) 5:51pm 6:26pm Basophils (%) 0.2 % 0.0-1.0 09/26/2017 09/26/2017 (Auto) 5:51pm 6:26pm IM GRANULOCYTES % 0.3 % 0.0-1.0 09/26/2017 09/26/2017 5:51pm 6:26pm Neutrophils # 7.6 H 2.1-6.9 09/26/2017 09/26/2017 (Auto) 5:51pm 6:26pm Lymphocytes # 2.2 1.0-3.2 09/26/2017 09/26/2017 (Auto) 5:51pm 6:26pm Monocytes # (Auto) 1.1 H 0.2-0.8 09/26/2017 09/26/2017 5:51pm 6:26pm Eosinophils # 0.0 0.0-0.4 09/26/2017 09/26/2017 (Auto) 5:51pm 6:26pm Basophils # (Auto) 0.0 0.0-0.1 09/26/2017 09/26/2017 5:51pm 6:26pm Absolute Immature 0.03 x10e3/u 0-0.1 09/26/2017 09/26/2017 Granulocyte (auto L 5:51pm 6:26pm Sodium Level 140 mmol/L 136-145 09/26/2017 09/26/2017 5:51pm 6:42pm Potassium Level 3.7 mmol/L 3.5-5.1 09/26/2017 09/26/2017 5:51pm 6:42pm Chloride Level 107 mmol/L 98-107 09/26/2017 09/26/2017 5:51pm 6:42pm Influenza Virus NEGATIVE NEGATIVE 09/26/2017 09/26/2017 Types A,B Antigen 5:51pm 7:00pm Carbon Dioxide 20 mmol/L L 22-29 09/26/2017 09/26/2017 Level 5:51pm 6:42pm Anion Gap 16.7 mmol/L H 8-16 09/26/2017 09/26/2017 5:51pm 6:42pm Blood Urea 12 mg/dL 7-26 09/26/2017 09/26/2017 Nitrogen 5:51pm 6:42pm Creatinine 0.81 mg/dL 0.72-1.25 09/26/2017 09/26/2017 5:51pm 6:42pm BUN/Creatinine 15 6-25 09/26/2017 09/26/2017 Ratio 5:51pm 6:42pm Estimat Glomerular > 60 ML/MIN 60- 09/26/2017 09/26/2017 Ranges were taken from the [employer] Filtration Rate 5:51pm 6:42pm Program and the [employer] literature. Reference ranges: 60 or greater: Normal 16-59 (for 3 consecutive months): Chronic kidney disease 15 or less: Kidney failure Glucose Level 99 mg/dL 74-118 09/26/2017 09/26/2017 5:51pm 6:42pm Calcium Level 9.2 mg/dL 8.4-10.2 09/26/2017 09/26/2017 5:51pm 6:42pm Total Bilirubin 1.0 mg/dL 0.2-1.2 09/26/2017 09/26/2017 5:51pm 6:42pm Aspartate Amino 20 IU/L 5-34 09/26/2017 09/26/2017 Transf (AST/SGOT) 5:51pm 6:42pm Alanine 21 IU/L 0-55 09/26/2017 09/26/2017 Aminotransferase 5:51pm 6:42pm (ALT/SGPT) Total Protein 7.6 g/dL 6.5-8.1 09/26/2017 09/26/2017 5:51pm 6:42pm Albumin 4.2 g/dL 3.5-5.0 09/26/2017 09/26/2017 5:51pm 6:42pm Globulin 3.4 g/dL 2.3-3.5 09/26/2017 09/26/2017 5:51pm 6:42pm Albumin/Globulin 1.2 0.8-2.0 09/26/2017 09/26/2017 Ratio 5:51pm 6:42pm Alkaline 95 IU/L 40-150 09/26/2017 09/26/2017 Phosphatase 5:51pm 6:42pm Group A NEGATIVE NEGATIVE 09/26/2017 09/26/2017 Streptococcus 5:51pm 7:00pm Screen Procedures Procedure Status Date Provider(s) CT of abdomen and pelvis without contrast Active 12/18/16 MOY SANTOS X-ray of chest, two views Active 09/26/17 RON AVITIA WELDER/FABRICATOR Encounters Encounter Location Arrival/Admit Date Discharge/Depart Date Attending Provider Departed [facility] 09/26/17 5:15pm 09/26/17 9:12pm EVETTE MCKEON Emergency [facility] [place] Departed [facility] 12/18/16 2:12pm 12/18/16 6:13pm [address] Emergency Room Patients [facility] Bhavik CANCINO [place]
[2019-07-06] MEDS ORDERED: VALACYCLOVIR 500 MG TAB ONE (08:22)
--- NOTE | 2019-07-06 08:23 | EDPHYS ---
Physician Documentation [facility] Name: Gatito Lyn Age: 44 yrs Sex: Male : 1975 Arrival Date: 07/06/2019 Time: 08:05 Bed 13 Private MD: ED Physician Farooq Lobo HPI: 07/06 08:19 This 44 yrs old Male presents to ER via Ambulatory with complaints of kb Abdominal Pain. 08:20 The patient presents with abdominal pain in the right upper quadrant. Onset: The kb symptoms/episode began/occurred 3 day(s) ago. The symptoms radiate to. Associated signs and symptoms: none. The symptoms are described as constant, sharp. Modifying factors: The symptoms are alleviated by nothing, the symptoms are aggravated by nothing. Severity of pain: At its worst the pain was severe in the emergency department the pain is unchanged. The patient has not experienced similar symptoms in the past. The patient has not recently seen a physician. Pt reports pain that starts at right mid back and radiates to RUQ. Reports pain is severe, worse with movement, deep breaths and touching area. Used a lidocaine patch for pain yesterday and noticed a rash after that. . Historical: - Allergies: 08:15 No Known Allergies; hb - PSHx: 08:15 Arm - Left; hb - Immunization history:: Adult Immunizations up to date. - Social history:: Smoking status: Patient/guardian denies using tobacco. - Ebola Screening: : No symptoms or risks identified at this time. ROS: 08:18 Constitutional: Negative for fever, chills, and weight loss, Cardiovascular: Negative kb for chest pain, palpitations, and edema, Respiratory: Negative for shortness of breath, cough, wheezing, and pleuritic chest pain, Back: Negative for injury and pain, MS/Extremity: Negative for injury and deformity, Neuro: Negative for headache, weakness, numbness, tingling, and seizure. 08:18 Abdomen/GI: Positive for abdominal pain, Negative for nausea, vomiting, and diarrhea. 08:18 Skin: Positive for rash. Exam: 08:18 Constitutional: This is a well developed, well nourished patient who is awake, alert, kb and in no acute distress. Head/Face: Normocephalic, atraumatic. Neck: Trachea midline, no thyromegaly or masses palpated, and no cervical lymphadenopathy. Supple, full range of motion without nuchal rigidity, or vertebral point tenderness. No Meningismus. Chest/axilla: Normal chest wall appearance and motion. Nontender with no deformity. No lesions are appreciated. Cardiovascular: Regular rate and rhythm with a normal S1 and S2. No gallops, murmurs, or rubs. Normal PMI, no JVD. No pulse deficits. Respiratory: Lungs have equal breath sounds bilaterally, clear to auscultation and percussion. No rales, rhonchi or wheezes noted. No increased work of breathing, no retractions or nasal flaring. Abdomen/GI: Soft, non-tender, with normal bowel sounds. No distension or tympany. No guarding or rebound. No evidence of tenderness throughout. MS/ Extremity: Pulses equal, no cyanosis. Neurovascular intact. Full, normal range of motion. Neuro: Awake and alert, GCS 15, oriented to person, place, time, and situation. Cranial nerves II-XII grossly intact. Motor strength 5/5 in all extremities. Sensory grossly intact. Cerebellar exam normal. Normal gait. 08:18 Skin: rash a moderate rash is noted, rash can be described as vesicular, consistent with zoster, on the right mid back. Vital Signs: 08:12 BP 119 / 96; Pulse 100; Resp 16; Temp 97.4; Pulse Ox 97% on R/A; Weight 72.57 kg; hb Height 5 ft. 11 in. (180.34 cm); Pain 6/10; 08:12 Body Mass Index 22.31 (72.57 kg, 180.34 cm) hb MDM: 08:07 Patient medically screened. kb 08:17 Data reviewed: vital signs, nurses notes. Data interpreted: Pulse oximetry: on room air kb is 97 %. Interpretation: normal. Counseling: I had a detailed discussion with the patient and/or guardian regarding: the historical points, exam findings, and any diagnostic results supporting the discharge/admit diagnosis, the need for outpatient follow up, a family practitioner, to return to the emergency department if symptoms worsen or persist or if there are any questions or concerns that arise at home. Administered Medications: 08:33 Drug: [place] 10 mg-325 mg 1 tabs Route: PO; hb 08:34 Follow up: Response: Medication administered at discharge.; RASS 0 hb 08:34 Drug: Valtrex 1000 mg Route: PO; hb 08:34 Follow up: Response: Medication administered at discharge. hb Disposition: 09:51 Co-signature as Attending Physician, Farooq Lobo MD. rn Disposition: 07/06/19 08:21 Discharged to Home. Impression: Zoster [herpes zoster]. - Condition is Stable. - Discharge Instructions: Shingles. - Prescriptions for Tylenol- Codeine #3 300-30 mg Oral Tablet - take 2 tablets by ORAL route every 6 hours As needed; 16 tablet. Valtrex 1 g Oral Tablet - take 1 tablet by ORAL route every 8 hours for 7 days; 21 tablet. - Medication Reconciliation Form, Thank You Letter, Antibiotic Education, Prescription Opioid Use form. - Follow up: Emergency Department; When: As needed; Reason: Worsening of condition. Follow up: Private Physician; When: 2 - 3 days; Reason: Recheck today's complaints, Continuance of care, Re-evaluation by your physician. Signatures: Yamila Tinoco, QUALITY ASSURANCE SUPERVISOR FINAL-C QUALITY ASSURANCE SUPERVISOR FINAL-Ckb Farooq Lobo MD MD rn Baxter, Heather, RN RN Corrections: (The following items were deleted from the chart) 08:35 08:21 07/06/2019 08:21 Discharged to Home. Impression: Zoster [herpes zoster]. hb Condition is Stable. Forms are Medication Reconciliation Form, Thank You Letter, Antibiotic Education, Prescription Opioid Use. Follow up: Emergency Department; When: As needed; Reason: Worsening of condition. Follow up: Private Physician; When: 2 - 3 days; Reason: Recheck today's complaints, Continuance of care, Re-evaluation by your physician. kb
--- NOTE | 2019-07-06 08:23 | ER ---
Nurse's Notes [facility] Name: Gatito Lyn Age: 44 yrs Sex: Male : 1975 Arrival Date: 07/06/2019 Time: 08:05 Bed 13 Private MD: Diagnosis: Zoster [herpes zoster] Presentation: 07/06 08:12 Presenting complaint: RUQ pain that radiates to back x 3 days. Transition of care: hb patient was not received from another setting of care. Onset of symptoms was July 04, 2019. Risk Assessment: Do you want to hurt yourself or someone else? Patient reports no desire to harm self or others. Initial Sepsis Screen: Does the patient meet any 2 criteria? No. Patient's initial sepsis screen is negative. Does the patient have a suspected source of infection? No. Patient's initial sepsis screen is negative. Care prior to arrival: None. 08:12 Method Of Arrival: Ambulatory hb 08:12 Acuity: LUCINDA 3 hb Historical: - Allergies: 08:15 No Known Allergies; hb - PSHx: 08:15 Arm - Left; hb - Immunization history:: Adult Immunizations up to date. - Social history:: Smoking status: Patient/guardian denies using tobacco. - Ebola Screening: : No symptoms or risks identified at this time. Screenin:16 Abuse screen: Denies threats or abuse. Denies injuries from another. Nutritional hb screening: No deficits noted. Tuberculosis screening: No symptoms or risk factors identified. Fall Risk None identified. Assessment: 08:17 General: Appears in no apparent distress. Behavior is calm, cooperative. Pain: Pain hb currently is 6 out of 10 on a pain scale. Neuro: Level of Consciousness is awake, alert, obeys commands, Oriented to person, place, time, situation. Cardiovascular: Capillary refill < 3 seconds Patient's skin is warm and dry. Respiratory: Airway is patent Respiratory effort is even, unlabored, Respiratory pattern is regular, symmetrical. GI: Abdomen is non-distended. : No signs and/or symptoms were reported regarding the genitourinary system. EENT: No signs and/or symptoms were reported regarding the EENT system. Derm: Rash noted that is tight mid back and right lateral torso. Musculoskeletal: No signs and/or symptoms reported regarding the musculoskeletal system. Vital Signs: 08:12 BP 119 / 96; Pulse 100; Resp 16; Temp 97.4; Pulse Ox 97% on R/A; Weight 72.57 kg; hb Height 5 ft. 11 in. (180.34 cm); Pain 6/10; 08:12 Body Mass Index 22.31 (72.57 kg, 180.34 cm) hb ED Course: 08:05 Patient arrived in ED. mr 08:07 Yamila Tinoco FNP-C is [facility]. kb 08:07 Farooq Lobo MD is Attending Physician. kb 08:08 Cira Miller, RN is Primary Nurse. hb 08:12 Arm band placed on. hb 08:13 Triage completed. hb 08:18 Patient has correct armband on for positive identification. Bed in low position. Call hb light in reach. Side rails up X 1. 08:35 No provider procedures requiring assistance completed. Patient did not have IV access hb during this emergency room visit. Administered Medications: 08:33 Drug: [place] 10 mg-325 mg 1 tabs Route: PO; hb 08:34 Follow up: Response: Medication administered at discharge.; RASS 0 hb 08:34 Drug: Valtrex 1000 mg Route: PO; hb 08:34 Follow up: Response: Medication administered at discharge. hb Intake: Outcome: 08:21 Discharge ordered by . kb 08:35 Discharged to home ambulatory. hb 08:35 Condition: stable 08:35 Discharge instructions given to patient, Instructed on discharge instructions, follow up and referral plans. medication usage, Demonstrated understanding of instructions, follow-up care, medications, Prescriptions given X 2. 08:35 Patient left the ED. hb Signatures: Yamila Tinoco FNP-C FNP-Ckb Rivera, Mary mr Cira Miller, RN RN hb Corrections: (The following items were deleted from the chart) 08:15 08:12 Acuity: LUCINDA 4 hb hb 09:45 08:12 BP 119 / 96; Pulse 10bpm; Resp 16bpm; Pulse Ox 97% RA; Temp 97.4F; 72.57 kg; hb Height 5 ft. 11 in.; BMI: 22.3; Pain 6/10; hb
[2019-07-06] MEDS ORDERED: HYDROCODONE/APAP 10/325 TAB ONE (08:33)
[2019-07-06 11:30] VITALS: BP 119/96; TEMP 97.4; O2SAT 97
== END 2019-07-06 08:35 | disposition home or self-care (01) ==
LOC: ER 08:03
DX: B02.9 Zoster without complications (principal)
CPT/HCPCS: 99283

== ENCOUNTER 2020-10-14 09:08 | Emergency (ER) | payer BC, SELFPAY ==
--- OUTSIDE RECORDS SUMMARY | 2020-10-14 09:11 | XMS REPORT | Continuity of Care Document ---
:1975 Author Organization [facility] t Address [address] [place] [address] Care Team Providers Name Role Phone NO Primary Care Physician Unavailable Teressa MCKEON Attending Clinician Unavailable Payers Payer Name Policy Type Policy Number Effective Date Expiration Date Jeet Arriola [id number] [facility] Problems This patient has no known problems. Allergies, Adverse Reactions, Alerts Allergy Allergy Status Severity Reaction(s) Onset Inactive Treating Comm ents Source Name Type Date Date Clinician No Known DA Active U 2019-0 [facility] 3[facility]20 [facility] 00:00: e 00 [facility] No Known DA Active U 2019-0 [facility]ergie 1-30 [facility] 00:00: e 00 Medical Center Medications This patient has no known medications. Procedures Procedure Date / Time Performed Performing Clinician [facility] e X-ray of chest, two 2017-09-26 00:00:00 RON AVITIA [facility] - [facility] CT of abdomen and 2016-12-18 00:00:00 MOY SANTOS [facility] - pelvis without Patients Medical contrast Center Encounters Start End Encounter Admission Attending Care Care Encounter Source Date/Time Date/Time Type Type Clinicians Facility Department ID 2017-09-26 2017-09-26 Departed ER EVETTE MCKEON [facility] [id number] [facility] [address] 17:15:00 21:12:00 Emergency 44 [facility] 2016-12-18 2016-12-18 Departed [facility] [id number] 2 [facility] 14:12:00 18:13:00 Emergency 09 [facility] Results Test Description Test Time Test Comments Results Result Comments Source URINALYSIS COMPLETE 2018-11-10 12:02:00 Test Item Value Reference Range Interpretation Comme nts UA COLOR (test code = COLU) DARK YELLOW YELLOW A UA APPEARANCE (test code = APPU) SLIGHTLY CLOUDY CLEAR A UA GLUCOSE DIPSTICK (test code = DGLUU) NEGATIVE mg/dL NEGATIVE UA BILIRUBIN DIPSTICK (test code = BILU) NEGATIVE mg/dL NEGATIVE UA KETONE DIPSTICK (test code = KETU) 20 (Small) mg/dL NEGATIVE A UA SPECIFIC GRAVITY (test code = SGU) 1.029 1.001-1.035 UA BLOOD DIPSTICK (test code = ZACK) Negative NEGATIVE UA PH DIPSTICK (test code = CYNDI) 8.0 5.0-8.0 UA PROTEIN DIPSTICK (test code = PROU) 30 (1+) mg/dL NEGATIVE A UA UROBILINIOGEN DIPSTICK (test code = URO) 4.0 (2+) mg/dL NEG ATIVE A UA NITRITE DIPSTICK (test code = STUART) NEGATIVE NEGATIVE UA LEUKOCYTE ESTERASE W REFLEX (test code = NEGATIVE NEGATIVE LEUUR) UA WBC (test code = WBCU) 0-5 #/HPF 0-5 UA RBC (test code = RBCU) 0-2 #/HPF 0-5 UA EPITHELIAL CELLS (test code = EPIU) FEW per HPF FEW UA MUCUS (test code = MUCU) MANY #/LPF FEW A Urine Source? Clean CatchURINALYSIS [id number] 11:54:00 Test Item Value Reference Range Interpretation Comments UA COLOR (test code = DARK YELLOW YELLOW A COLU) UA APPEARANCE (test code SLIGHTLY CLOUDY CLEAR A = APPU) UA GLUCOSE DIPSTICK (test NEGATIVE mg/dL NEGATIVE code = DGLUU) UA BILIRUBIN DIPSTICK NEGATIVE mg/dL NEGATIVE (test code = BILU) UA KETONE DIPSTICK (test 20 (Small) mg/dL NEGATIVE A code = KETU) UA SPECIFIC GRAVITY (test 1.029 1.001-1.035 code = SGU) UA BLOOD DIPSTICK (test Negative NEGATIVE code = ZACK) UA PH DIPSTICK (test code 8.0 5.0-8.0 = CYNDI) UA PROTEIN DIPSTICK (test 30 (1+) mg/dL NEGATIVE A code = PROU) UA UROBILINIOGEN DIPSTICK 4.0 (2+) mg/dL NEGATIVE A (test code = URO) UA NITRITE DIPSTICK (test NEGATIVE NEGATIVE code = STUART) UA LEUKOCYTE ESTERASE W NEGATIVE NEGATIVE REFLEX (test code = LEUUR) UA WBC (test code = WBCU) per HPF 0-5 Urine Source? Clean CatchBASIC METABOLIC [id number] 10:00:00 Test Item Value Reference Range Interpretation Comments SODIUM (test code = 138 mmol/L 136-145 N NA) POTASSIUM (test code 3.8 mmol/L 3.5-5.1 N = K) CHLORIDE (test code = 106.0 mmol/L 98-107 N CL) CARBON DIOXIDE (test 24.0 mmol/L 21-32 N code = CO2) ANION GAP (test code 11.8 10-20 N = GAP) GLUCOSE (test code = 106 mg/dL 74-106 N GLU) BLOOD UREA NITROGEN 13 mg/dL 7-18 N (test code = BUN) GLOMERULAR FILTRATION > 60 mL/min >=60 Estima berenice GFR by RATE (test code = using Lashawn fied MDRD GFR) formula.Chronic kidney disease is defined as [facility] kidney damageor GFR <60 mL/min/1.73 m2 for >3 months. CREATININE (test code 1.00 mg/dL 0.7-1.3 N = CREAT) BUN/CREATININE RATIO 12.6 10-20 N (test code = BUN/CREA) CALCIUM (test code = 9.1 mg/dL 8.5-10.1 N CA) HEPATIC FUNCTION [id number] 10:00:00 Test Item Value Reference Range Interpretation Comments TOTAL PROTEIN (test 7.9 gram/dL 6.4-8.2 N code = PROT) ALBUMIN (test code = 4.3 g/dL 3.4-5.0 N ALB) GLOBULIN (test code = 3.6 gram/dL 2.7-4.2 N GLOB) ALBUMIN/GLOBULIN RATIO 1.2 0.75-1.50 N (test code = A/G) BILIRUBIN TOTAL (test 0.80 mg/dL 0.0-1.0 N code = BILT) BILIRUBIN DIRECT (test 0.18 mg/dL 0.0-0.20 N code = BILD) SGOT/AST (test code = 15 IUnit/L 15-37 N AST) SGPT/ALT (test code = 24 IUnit/L 12-78 N ALT) ALKALINE PHOSPHATASE 110 IUnit/L 45-117 N Note change in TOTAL (test code = reference range due ALKP) to change in reagent. [id number] 10:00:00 Test Item Value Reference Range Interpretation Comments LIPASE (test code = LIP) 96 U/L 73.0-393.0 N BASIC METABOLIC [id number] 09:53:00 Test Item Value Reference Range Interpretation Comments SODIUM (test code = NA) 138 mmol/L 136-145 N POTASSIUM (test code = K) 3.8 mmol/L 3.5-5.1 N CHLORIDE (test code = CL) 106.0 mmol/L 98-107 N CARBON DIOXIDE (test code = CO2) mmol/L 21-32 ANION GAP (test code = GAP) 10-20 GLUCOSE (test code = GLU) mg/dL 74-106 BLOOD UREA NITROGEN (test code = mg/dL 7-18 BUN) GLOMERULAR FILTRATION RATE (test mL/min >=60 code = GFR) CREATININE (test code = CREAT) mg/dL 0.7-1.3 BUN/CREATININE RATIO (test code 10-20 = BUN/CREA) CALCIUM (test code = CA) mg/dL 8.5-10.1 HEPATIC FUNCTION [id number] 09:53:00 Test Item Value Reference Range Interpretation Comments TOTAL PROTEIN (test code = PROT) gram/dL 6.4-8.2 ALBUMIN (test code = ALB) g/dL 3.4-5.0 GLOBULIN (test code = GLOB) gram/dL 2.7-4.2 ALBUMIN/GLOBULIN RATIO (test code = 0.75-1.50 A/G) BILIRUBIN TOTAL (test code = BILT) mg/dL 0.0-1.0 BILIRUBIN DIRECT (test code = BILD) mg/dL 0.0-0.20 SGOT/AST (test code = AST) IUnit/L 15-37 SGPT/ALT (test code = ALT) IUnit/L 12-78 ALKALINE PHOSPHATASE TOTAL (test IUnit/L 45-117 code = ALKP) [id number] 09:53:00 Test Item Value Reference Range Interpretation Comments LIPASE (test code = LIP) U/L 73.0-393.0 CBC W/O [id number] 09:43:00 Test Item Value Reference Range Interpretation Comments WHITE BLOOD CELL (test code = 6.8 K/mm3 4.5-12.5 N WBC) RED BLOOD CELL (test code = 5.48 mill/mm3 4.0-5.8 N RBC) HEMOGLOBIN (test code = HGB) 16.8 gram/dL 13.0-17.5 N HEMATOCRIT (test code = HCT) 48.8 % 42.0-52.0 N MEAN CELL VOLUME (test code = 89.1 fL 80-98 N MCV) MEAN CELL HGB (test code = MCH) 30.7 picogram 27.0-33.0 N MEAN CELL HGB CONCETRATION 34.4 gram/dL 33.0-36.0 N (test code = MCHC) RED CELL DISTRIBUTION WIDTH 11.5 % 11.6-16.2 L (test code = RDW) PLATELET COUNT (test code = 223 K/mm3 150-450 N PLT) MEAN PLATELET VOLUME (test code 8.4 fL 6.7-11.0 N = MPV) CBC W/O [id number] 09:41:00 Test Item Value Reference Range Interpretation Comments WHITE BLOOD CELL (test code = K/mm3 4.5-12.5 WBC) RED BLOOD CELL (test code = RBC) mill/mm3 4.0-5.8 HEMOGLOBIN (test code = HGB) 16.8 gram/dL 13.0-17.5 N HEMATOCRIT (test code = HCT) 48.8 % 42.0-52.0 N MEAN CELL VOLUME (test code = fL 80-98 MCV) MEAN CELL HGB (test code = MCH) picogram 27.0-33.0 MEAN CELL HGB CONCETRATION (test gram/dL 33.0-36.0 code = MCHC) RED CELL DISTRIBUTION WIDTH % 11.6-16.2 (test code = RDW) PLATELET COUNT (test code = PLT) K/mm3 150-450 MEAN PLATELET VOLUME (test code fL 6.7-11.0 = MPV) - CT ABD PELVIS [id number] 10:43:00 Name: CHRISTOPHER WYNN [facility] : 1975 Age/S: 43 / M [address] Unit #: [id number] Loc: [place] [address] Phys: Pietro Wallace MD Acct: [id number] Dis Date: Status: REG ER PHONE #: [phone] Exam Date: 09/22/2018 1006 FAX #: [phone] Reason: L sidedabd pain EXAMS: CPT CODE: [id number] CT ABD PELVIS W/CONT 05887 HISTORY: Left-sided abdominal pain. COMPARISON: None available. [...] PAGE 1 Signed Report (CONTINUED) [facility] 1975 Age[facility]S: 43 / M [address] [facility] Unit #: [id number] Loc: [place] [address] Phys: Pietro Wallace MD Acct: [id number] Dis Date: Status: REG ER PHONE #: [phone] Exam Date: 09/22/2018 1006 FAX #: [phone] Reason: L sided abd pain EX AMS: CPT CODE: [id number] CT ABD PELVIS W/CONT 09825 <Continued> at 1043 Reported and signed by: Jourdan Stark M.D. CC: Pietro Wallace MD Technologist:Loli Hugo,RT(R),CT CTDI: DLP: Trnscb Date/Time: 09/22/2018 (1043) t.[email or web address].[email or web address] Orig Print D/T: S: 09/22/2018 (1046) CTDI: DLP: PAGE 2 Signed [id number] 09:49:00 Test Item Value Reference Range Interpretation Comments TROPONIN-I (test code = TROPI) <0.015 ng/mL 0-0.045 N BASIC METABOLIC [id number] 09:42:00 Test Item Value Reference Range Interpretation Comments SODIUM (test code = 141 mmol/L 136-145 N NA) POTASSIUM (test code 4.2 mmol/L 3.5-5.1 N = K) CHLORIDE (test code = 106.0 mmol/L 98-107 N CL) CARBON DIOXIDE (test 29.0 mmol/L 21-32 N code = CO2) ANION GAP (test code 10.2 10-20 N = GAP) GLUCOSE (test code = 103 mg/dL 74-106 N GLU) BLOOD UREA NITROGEN 9 mg/dL 7-18 N (test code = BUN) GLOMERULAR FILTRATION > 60 mL/min >=60 Estima berenice GFR by RATE (test code = using Lashawn fied MDRD GFR) formula.Chronic kidney disease is defined as [facility] kidney damageor GFR <60 mL/min/1.73 m2 for >3 months. CREATININE (test code 0.90 mg/dL 0.7-1.3 N = CREAT) BUN/CREATININE RATIO 10.1 10-20 N (test code = BUN/CREA) CALCIUM (test code = 8.6 mg/dL 8.5-10.1 N CA) HEPATIC FUNCTION [id number] 09:42:00 Test Item Value Reference Range Interpretation Comments TOTAL PROTEIN (test 8.0 gram/dL 6.4-8.2 N code = PROT) ALBUMIN (test code = 4.1 g/dL 3.4-5.0 N ALB) GLOBULIN (test code = 3.9 gram/dL 2.7-4.2 N GLOB) ALBUMIN/GLOBULIN RATIO 1.1 0.75-1.50 N (test code = A/G) BILIRUBIN TOTAL (test 0.30 mg/dL 0.0-1.0 N code = BILT) BILIRUBIN DIRECT (test 0.08 mg/dL 0.0-0.20 N code = BILD) SGOT/AST (test code = 46 IUnit/L 15-37 H AST) SGPT/ALT (test code = 71 IUnit/L 12-78 N ALT) ALKALINE PHOSPHATASE 136 IUnit/L 45-117 H Note change in TOTAL (test code = reference range due ALKP) to change in reagent. [id number] 09:42:00 Test Item Value Reference Range Interpretation Comments LIPASE (test code = LIP) 99 U/L 73.0-393.0 N BASIC METABOLIC [id number] 09:35:00 Test Item Value Reference Range Interpretation Comments SODIUM (test code = NA) 141 mmol/L 136-145 N POTASSIUM (test code = K) 4.2 mmol/L 3.5-5.1 N CHLORIDE (test code = CL) 106.0 mmol/L 98-107 N CARBON DIOXIDE (test code = CO2) mmol/L 21-32 ANION GAP (test code = GAP) 10-20 GLUCOSE (test code = GLU) mg/dL 74-106 BLOOD UREA NITROGEN (test code = mg/dL 7-18 BUN) GLOMERULAR FILTRATION RATE (test mL/min >=60 code = GFR) CREATININE (test code = CREAT) mg/dL 0.7-1.3 BUN/CREATININE RATIO (test code 10-20 = BUN/CREA) CALCIUM (test code = CA) mg/dL 8.5-10.1 HEPATIC FUNCTION [id number] 09:35:00 Test Item Value Reference Range Interpretation Comments TOTAL PROTEIN (test code = PROT) gram/dL 6.4-8.2 ALBUMIN (test code = ALB) g/dL 3.4-5.0 GLOBULIN (test code = GLOB) gram/dL 2.7-4.2 ALBUMIN/GLOBULIN RATIO (test code = 0.75-1.50 A/G) BILIRUBIN TOTAL (test code = BILT) mg/dL 0.0-1.0 BILIRUBIN DIRECT (test code = BILD) mg/dL 0.0-0.20 SGOT/AST (test code = AST) IUnit/L 15-37 SGPT/ALT (test code = ALT) IUnit/L 12-78 ALKALINE PHOSPHATASE TOTAL (test IUnit/L 45-117 code = ALKP) [id number] 09:35:00 Test Item Value Reference Range Interpretation Comments LIPASE (test code = LIP) U/L 73.0-393.0 CBC W/O [id number] 09:16:00 Test Item Value Reference Range Interpretation Comments WHITE BLOOD CELL (test code = 6.6 K/mm3 4.5-12.5 N WBC) RED BLOOD CELL (test code = 5.23 mill/mm3 4.0-5.8 N RBC) HEMOGLOBIN (test code = HGB) 16.2 gram/dL 13.0-17.5 N HEMATOCRIT (test code = HCT) 49.4 % 42.0-52.0 N MEAN CELL VOLUME (test code = 94.5 fL 80-98 N MCV) MEAN CELL HGB (test code = MCH) 31.0 picogram 27.0-33.0 N MEAN CELL HGB CONCETRATION 32.8 gram/dL 33.0-36.0 L (test code = MCHC) RED CELL DISTRIBUTION WIDTH 11.8 % 11.6-16.2 N (test code = RDW) PLATELET COUNT (test code = 214 K/mm3 150-450 N PLT) MEAN PLATELET VOLUME (test code 8.5 fL 6.7-11.0 N = MPV) URINALYSIS [id number] 08:56:00 Test Item Value Reference Range Interpretation Comments UA COLOR (test code = COLU) STRAW YELLOW UA APPEARANCE (test code = CLEAR CLEAR APPU) UA GLUCOSE DIPSTICK (test code NEGATIVE mg/dL NEGATIVE = DGLUU) UA BILIRUBIN DIPSTICK (test NEGATIVE mg/dL NEGATIVE code = BILU) UA KETONE DIPSTICK (test code Negative mg/dL NEGATIVE = KETU) UA SPECIFIC GRAVITY (test code 1.006 1.001-1.035 = SGU) UA BLOOD DIPSTICK (test code = Negative NEGATIVE ZACK) UA PH DIPSTICK (test code = 7.0 5.0-8.0 CYNDI) UA PROTEIN DIPSTICK (test code Negative mg/dL NEGATIVE = PROU) UA UROBILINIOGEN DIPSTICK NEGATIVE mg/dL NEGATIVE (test code = URO) UA NITRITE DIPSTICK (test code NEGATIVE NEGATIVE = STUART) UA LEUKOCYTE ESTERASE W REFLEX NEGATIVE NEGATIVE (test code = LEUUR) UA WBC (test code = WBCU) 0-5 #/HPF 0-5 Urine Source? Clean CatchURINALYSIS [id number] 08:54:00 Test Item Value Reference Range Interpretation Comments UA COLOR (test code = COLU) STRAW YELLOW UA APPEARANCE (test code = CLEAR CLEAR APPU) UA GLUCOSE DIPSTICK (test code NEGATIVE mg/dL NEGATIVE = DGLUU) UA BILIRUBIN DIPSTICK (test NEGATIVE mg/dL NEGATIVE code = BILU) UA KETONE DIPSTICK (test code Negative mg/dL NEGATIVE = KETU) UA SPECIFIC GRAVITY (test code 1.006 1.001-1.035 = SGU) UA BLOOD DIPSTICK (test code = Negative NEGATIVE ZACK) UA PH DIPSTICK (test code = 7.0 5.0-8.0 CYNDI) UA PROTEIN DIPSTICK (test code Negative mg/dL NEGATIVE = PROU) UA UROBILINIOGEN DIPSTICK NEGATIVE mg/dL NEGATIVE (test code = URO) UA NITRITE DIPSTICK (test code NEGATIVE NEGATIVE = STUART) UA LEUKOCYTE ESTERASE W REFLEX NEGATIVE NEGATIVE (test code = LEUUR) UA WBC (test code = WBCU) per HPF 0-5 Urine Source? Clean Catch- XR CHEST 1 [id number] 08:23:00 FAX: Pietro Wallace MD [phone] Sebastian: B St: REG Name: CHRISTOPHER WYNN [facility] : 1975 Age/S: 43/M [address] Unit#: [id number] Loc: [place] [address] Phys: Pietro Wallace MD Acct: [id number] Dis Date: Status: REG ER PHONE #: [phone] Exam Date: 09/22/2018820 FAX #: [phone] Reason: cough EXAMS: CPT CODE: [id number] XR CHEST 1 V 15002 HISTORY: Abdominal pain. COMPARISON: None available. No acute infiltrates, effusion or congestion is noted. The cardiac and mediastinal silhouette are within normal limits. IMPRESSION: No acute infiltrates, effusion or congestion. at 0823 Reported and signed by: Jourdan Stark M.D. CC: Pietro Wallace MD Technologist: Radha dAame(R); STUDENT TECHNOLOGIST Trnscrd Date/Time/By: 09/22/2018 (08) : By: [email or web address] Orig Print D/T: S: 09/22/2018 (0826) PAGE 1 Signed ReportInfluenza Virus Types A,B [id number] 19:00:00 Test Item Value Reference Range Interpretation Comments Influenza Virus Types A,B Antigen NEGATIVE NEGATIVE (test code = 00694-0) [facility] Streptococcus [id number] 19:00:00 Test Item Value Reference Range Interpretation Comments Group A Streptococcus Screen (test NEGATIVE NEGATIVE code = 47475-4) [facility] [id number] 18:42:00 Test Item Value Reference Range Interpretation Comments Sodium Level (test code = 2951-2) 140 136-145 [facility] HospitalPotassium [id number] 18:42:00 Test Item Value Reference Range Interpretation Comments Potassium Level (test code = 2823-3) 3.7 3.5-5.1 [facility] HospitalChloride [id number] 18:42:00 Test Item Value Reference Range Interpretation Comments Chloride Level (test code = 2075-0) 107 98-107 [facility] HospitalCarbon Dioxide [id number] 18:42:00 Test Item Value Reference Range Interpretation Comments Carbon Dioxide Level (test code = 20 22-29 L 2028-04) [facility] HospitalAnion [id number] 18:42:00 Test Item Value Reference Range Interpretation Comments Anion Gap (test code = 21480-2) 16.7 8-[address] [facility] HospitalBlood Urea [id number] 18:42:00 Test Item Value Reference Range Interpretation Comments Blood Urea Nitrogen (test code = 12 03-18 3094-0) [facility] HospitalCreatinine2018-02-03 18:42:00 Test Item Value Reference Range Interpretation Comments Creatinine (test code = 2160-0) 0.81 0.72-1.25 [facility] HospitalBUN/Creatinine [id number] 18:42:00 Test Item Value Reference Range Interpretation Comments BUN/Creatinine Ratio (test code = 02-15 3097-3) [facility] HospitalEstimat Glomerular Filtration Rate 2017-09-26 18:42:00 Test Item Value Reference Range Interpretation Comments Estimat Glomerular Filtration Rate 60- >60 (test code = 95906-7) Ranges were taken from the National Kidney Disease Education Program and the National Kidney Foundation literature.Reference ranges:60 or greater: Lrfjed25- 59 (for 3 consecutive months): Chronic kidneydisease 15 or less: Kidney failure [facility] HospitalGlucose [id number] 18:42:00 Test Item Value Reference Range Interpretation Comments Glucose Level (test code = MGD3489) 99 74-118 [facility] HospitalCalcium [id number] 18:42:00 Test Item Value Reference Range Interpretation Comments Calcium Level (test code = 27123-5) 9.2 8.4-10.2 [facility] HospitalTotal [id number] 18:42:00 Test Item Value Reference Range Interpretation Comments Total Bilirubin (test code = 1975-2) 1.0 0.2-1.2 [facility] HospitalAspartate Amino Transf (AST/SGOT) 2017-09-26 18:42:00 Test Item Value Reference Range Interpretation Comments Aspartate Amino Transf (AST/SGOT) (test 20 5-34 code = Aspartate Amino Transf (AST/SGOT)) [facility] HospitalAlanine Aminotransferase (ALT/SGPT) 2017-09-26 18:42:00 Test Item Value Reference Range Interpretation Comments Alanine Aminotransferase (ALT/SGPT) 21 0-55 (test code = 1742-6) [facility] HospitalTotal [id number] 18:42:00 Test Item Value Reference Range Interpretation Comments Total Protein (test code = 2885-2) 7.6 6.5-8.1 [facility] HospitalAlbumin2018-02-03 18:42:00 Test Item Value Reference Range Interpretation Comments Albumin (test code = 1751-7) 4.2 3.5-5.0 [facility] HospitalGlobulin2018-02-03 18:42:00 Test Item Value Reference Range Interpretation Comments Globulin (test code = 36526-9) 3.4 2.3-3.5 [facility] HospitalAlbumin/Globulin [id number] 18:42:00 Test Item Value Reference Range Interpretation Comments Albumin/Globulin Ratio (test code = 1.2 0.8-2.0 1759-0) [facility] HospitalAlkaline [id number] 18:42:00 Test Item Value Reference Range Interpretation Comments Alkaline Phosphatase (test code = 95 40150 6768-6) [facility] HospitalMean Corpuscular [id number] 18:26:00 Test Item Value Reference Range Interpretation Comments Mean Corpuscular Hemoglobin (test code 32.0 28-32 = 785-6) [facility] HospitalMean Corpuscular Hemoglobin Concent 2017-09-26 18:26:00 Test Item Value Reference Range Interpretation Comments Mean Corpuscular Hemoglobin Concent 35.1 31-35 H (test code = 786-4) [facility] HospitalRed Cell Distribution [id number] 18:26:00 Test Item Value Reference Range Interpretation Comments Red Cell Distribution Width (test code 11.6 11.7-14.4 L = 70210-4) [facility] HospitalPlatelet [id number] 18:26:00 Test Item Value Reference Range Interpretation Comments Platelet Count (test code = 777-3) 145 140-360 [facility] HospitalNeutrophils (%) (Auto)2017-09-26 18:26:00 Test Item Value Reference Range Interpretation Comments Neutrophils (%) (Auto) (test code = 69.3 38.7-80.0 01038-9) [facility] HospitalLymphocytes (%) (Auto)2017-09-26 18:26:00 Test Item Value Reference Range Interpretation Comments Lymphocytes (%) (Auto) (test code = 19.9 18.0-39.1 736-9) [facility] HospitalMonocytes (%) (Auto)2017-09-26 18:26:00 Test Item Value Reference Range Interpretation Comments Monocytes (%) (Auto) (test code = 10.0 4.4-11.3 5905-5) [facility] HospitalEosinophils (%) (Auto)2017-09-26 18:26:00 Test Item Value Reference Range Interpretation Comments Eosinophils (%) (Auto) (test code = 0.3 0.0-6.0 713-8) [facility] HospitalBasophils (%) (Auto)2017-09-26 18:26:00 Test Item Value Reference Range Interpretation Comments Basophils (%) (Auto) (test code = 0.2 0.0-1.0 706-2) [facility] HospitalIM GRANULOCYTES %2017-09-26 18:26:00 Test Item Value Reference Range Interpretation Comments IM GRANULOCYTES % (test code = IM 0.3 0.0-1.0 GRANULOCYTES %) [facility] HospitalNeutrophils # (Auto)2017-09-26 18:26:00 Test Item Value Reference Range Interpretation Comments Neutrophils # (Auto) (test code = 7.6 2.1-6.9 H 751-8) [facility] HospitalLymphocytes # (Auto)2017-09-26 18:26:00 Test Item Value Reference Range Interpretation Comments Lymphocytes # (Auto) (test code = 2.2 1.0-3.2 08233-5) [facility] HospitalMonocytes # (Auto)2017-09-26 18:26:00 Test Item Value Reference Range Interpretation Comments Monocytes # (Auto) (test code = 742-7) 1.1 0.2-0.[address] [facility] HospitalEosinophils # (Auto)2017-09-26 18:26:00 Test Item Value Reference Range Interpretation Comments Eosinophils # (Auto) (test code = 0.0 0.0-0.4 711-2) [facility] HospitalBasophils # (Auto)2017-09-26 18:26:00 Test Item Value Reference Range Interpretation Comments Basophils # (Auto) (test code = 704-7) 0.0 0.0-0.1 [facility] HospitalAbsolute Immature Granulocyte (auto 2017-09-26 18:26:00 Test Item Value Reference Range Interpretation Comments Absolute Immature Granulocyte (auto 0.03 0-0.1 (test code = Absolute Immature Granulocyte (auto) [facility] HospitalWhite Blood [id number] 18:26:00 Test Item Value Reference Range Interpretation Comments White Blood Count (test code = 6690-2) 11.01 4.8-10.[address] [facility] HospitalRed Blood [id number] 18:26:00 Test Item Value Reference Range Interpretation Comments Red Blood Count (test code = 789-8) 5.18 4.3-5.7 [facility] HospitalHemoglobin2018-02-03 18:26:00 Test Item Value Reference Range Interpretation Comments Hemoglobin (test code = 08348-4) 16.6 14.0-18.0 [facility] HospitalHematocrit2018-02-03 18:26:00 Test Item Value Reference Range Interpretation Comments Hematocrit (test code = 4544-3) 47.3 38.2-49.6 [facility] HospitalMean Corpuscular [id number] 18:26:00 Test Item Value Reference Range Interpretation Comments Mean Corpuscular Volume (test code = 91.3 81-99 787-2) [facility]Am[facility] [id number] 16:28:00 Test Item Value Reference Range Interpretation Comments Amylase Level (test code = 1798-8) 69 25-125 [facility]2017-04-27 16:28:00 Test Item Value Reference Range Interpretation Comments Lipase (test code = 3040-3) 27 8-78 [facility] [id number] 15:44:00 Test Item Value Reference Range Interpretation Comments Urine WBC (test code = 5821-4) 0-5 0-5 [facility] [id number] 15:44:00 Test Item Value Reference Range Interpretation Comments Urine RBC (test code = 73701-2) 6-10 0-5 [facility] [id number] 15:44:00 Test Item Value Reference Range Interpretation Comments Urine Bacteria (test code = 17345-2) RARE NONE [facility] Epithelial [id number] 15:44:00 Test Item Value Reference Range Interpretation Comments Urine Epithelial Cells (test code = RARE NONE 55746-9) [facility] [id number] 15:29:00 Test Item Value Reference Range Interpretation Comments Urine Color (test code = 5778-6) STRAW YELLOW [facility] [id number] 15:29:00 Test Item Value Reference Range Interpretation Comments Urine Clarity (test code = 55990-5) CLEAR CLEAR [facility] [id number] 15:29:00 Test Item Value Reference Range Interpretation Comments Urine Specific [place] (test code = 1.020 1.010-1.025 5811-5) [facility] [id number] 15:29:00 Test Item Value Reference Range Interpretation Comments Urine pH (test code = 17283-7) 6.5 5-7 [facility] Leukocyte [id number] 15:29:00 Test Item Value Reference Range Interpretation Comments Urine Leukocyte Esterase (test code NEGATIVE NEGATIVE = 5799-2) [facility] [id number] 15:29:00 Test Item Value Reference Range Interpretation Comments Urine Nitrite (test code = 37912-9) NEGATIVE NEGATIVE [facility] [id number] 15:29:00 Test Item Value Reference Range Interpretation Comments Urine Protein (test code = 5804-0) NEGATIVE NEGATIVE [facility] Glucose ([id number] 15:29:00 Test Item Value Reference Range Interpretation Comments Urine Glucose (UA) (test code = NEGATIVE NEGATIVE 2349-9) [facility] [id number] 15:29:00 Test Item Value Reference Range Interpretation Comments Urine Ketones (test code = 58095-7) NEGATIVE NEGATIVE [facility] [id number] 15:29:00 Test Item Value Reference Range Interpretation Comments Urine Urobilinogen (test code = 0.2 0.2-1 59377-3) [facility] [id number] 15:29:00 Test Item Value Reference Range Interpretation Comments Urine Bilirubin (test code = 1978-6) NEGATIVE NEGATIVE [facility] [id number] 15:29:00 Test Item Value Reference Range Interpretation Comments Urine Blood (test code = 95450-4) TRACE NEGATIVE H [facility] [place] [address] Patient Name: CHRISTOPHER WYNN MR #: [id number] : 1975 Age/Sex: 42/M Req #: [id number] Adm Physician: Ordered by: RON AVITIA NP Report #: [id number] Location: ER Room/Bed: Procedure: [id number] DX/CHEST 2 VIEWS Exam Date: 09/26/17 Exam Time: 1819 REPORT STATUS: Signed EXAMINATION: Chest, CHEST 2 VIEWS INDICATION: Chest pain COMPARISON: None FINDINGS: LINES: None. Heart: Normal cardiac silhouette. Vascular: The pulmonary vasculature is within normal limits. Me diastinum: No mediastinal, hilar, or axillary mass or [...]
[2020-10-14 10:22] LABS: Absolute Lymphocytes (CBC) 1.9 K/uL (0.7-4.9); Basophils % 0.8 % (0-1.3); Hematocrit 46.5 % (39.6-49.0); Lymphocytes % 26.1 % (15.3-44.8); MPV 6.9 fL (7.6-11.3); RBC Red Blood Cell Count 5.16 M/uL (4.33-5.43)
[2020-10-14 10:39] LABS: ALT/SGPT 33 U/L (12-78); AST/SGOT 13 U/L (15-37); Albumin 3.7 g/dL (3.4-5.0); Alkaline Phosphatase 144 U/L (45-117); BUN Blood Urea Nitrogen 11 mg/dL (7-18); Bicarbonate 27 mmol/L (21-32); Bilirubin Direct 0.1 mg/dL (0-0.2); Bilirubin Total 0.6 mg/dL (0.2-1.0); Glucose Level 91 mg/dL (74-106); Lipase 82 U/L (73-393); Potassium 4.3 mmol/L (3.5-5.1); Protein, Total 7.1 g/dL (6.4-8.2); Sodium Level 141 mmol/L (136-145)
--- NOTE | 2020-10-14 10:51 | RAD REPORT ---
EXAM DESCRIPTION: CT - Abdomen Pelvis W Contrast - 10/14/2020 10:30 am CLINICAL HISTORY: left sided abd pain COMPARISON: Abdomen Pelvis W Contrast dated 04/26/2019 TECHNIQUE: Biphasic, helical CT imaging of the abdomen and pelvis was performed following 100 ml non -ionic IV contrast. No oral contrast given. All CT scans are performed using dose optimization technique as appropriate and may include automated exposure control or mA/KV adjustment according to patient size. FINDINGS: No suspicious findings in the lung bases. The liver, spleen, and pancreas show no suspicious findings. Gallbladder and biliary tree are also wi thout suspicious finding. Symmetric renal function is seen with no hydronephrosis or suspicious renal mass. No pyelonephritis o r acute parenchymal process. Punctate nonobstructing calculus seen in the upper pole of the left kidn ey. Hyperdensity in the pelvis on the venous phase imaging is contrast and not the stone. No adrenal abnormalities. Urinary bladder is fully contracted limiting assessment. No prostate gland or seminal vesicle abnormality seen. Patient has a few pelvic floor phleboliths. No dilated bowel loops or bowel wall thickening. No appendicitis findings. Patient has diverticulosis but no diverticulitis. No free air, free fluid or inflammatory stranding. No mass or bulky lymphade nopathy. A very small fat only umbilical hernia present. No suspicious bony findings. IMPRESSION: Contrast enhanced CT abdomen and pelvis showing no acute or emergent finding. Above detailed findings are not significantly different from April 2019 imaging.
--- NOTE | 2020-10-14 11:05 | EDPHYS ---
Physician Documentation [facility] Name: Gatito Lyn Age: 45 yrs Sex: Male : 1975 Arrival Date: 10/14/2020 Time: 09:10 Bed 18 Private MD: ED Physician Farooq Lobo HPI: 10/14 10:00 This 45 yrs old Male presents to ER via Ambulatory with complaints of rn abdominal pain. 10:00 The patient presents with abdominal pain in the left upper quadrant. Onset: The rn symptoms/episode began/occurred "months". The symptoms do not radiate. Associated signs and symptoms: Pertinent positives: diarrhea, Pertinent negatives: fever, headache, palpitations, testicular pain, vomiting, vomiting blood. The symptoms are described as achy, dull. Modifying factors: The symptoms are alleviated by nothing, the symptoms are aggravated by touching the area. Severity of pain: At its worst the pain was mild in the emergency department the pain is unchanged. The patient has experienced similar episodes in the past. The patient has not recently seen a physician. Reports left sided abd pain for months, no trauma, no fever, no hernia, reports a couple of days of diarrhea dn small amount of blood, came in today because finally got tired of abd pain.. Historical: - Allergies: 09:24 No Known Allergies; iw - Home Meds: 09:24 None [Active]; iw - PMHx: :24 None; iw - PSHx: 09:24 Arm - Left; iw - Immunization history:: Adult Immunizations not up to date. - Social history:: Smoking status: Patient denies any tobacco usage or history of. - Family history:: not pertinent. - Hospitalizations: : No recent hospitalization is reported. ROS: 10:00 Constitutional: Negative for fever, chills, and weight loss, Eyes: Negative for injury, rn pain, redness, and discharge, Cardiovascular: Negative for chest pain, palpitations, and edema, Respiratory: Negative for shortness of breath, cough, wheezing, and pleuritic chest pain, Abdomen/GI: + left sided abd pain, + diarrhea Back: Negative for injury and pain, : Negative for injury, bleeding, discharge, and swelling, MS/Extremity: Negative for injury and deformity, Skin: Negative for injury, rash, and discoloration, Neuro: Negative for headache, weakness, numbness, tingling, and seizure. Exam: 10:00 Constitutional: This is a well developed, well nourished patient who is awake, alert, rn and in no acute distress. Head/Face: Normocephalic, atraumatic. Cardiovascular: Regular rate and rhythm. No pulse deficits. Respiratory: No increased work of breathing, no retractions or nasal flaring. Abdomen/GI: + mild left sided abd tenderness, no masses, no inguinal hernia Skin: Warm, dry MS/ Extremity: Pulses equal, no cyanosis. Neuro: Awake and alert, GCS 15 Vital Signs: 09:22 BP 116 / 83; Pulse 77; Resp 16; Temp 97.8; Pulse Ox 98% on R/A; Weight 79.38 kg; Height iw 5 ft. 11 in. (180.34 cm); 11:30 Pulse 75; Resp 16 S; Pulse Ox 98% on R/A; jd3 09:22 Body Mass Index 24.41 (79.38 kg, 180.34 cm) iw MDM: 09:42 Patient medically screened. rn 10:00 Differential diagnosis: diverticulitis, gastritis, non-specific abd pain, pancreatitis, rn Ureterolithiasis. Data reviewed: vital signs, nurses notes. 10:58 Counseling: I had a detailed discussion with the patient and/or guardian regarding: the rn historical points, exam findings, and any diagnostic results supporting the discharge/admit diagnosis, lab results, radiology results, the need for outpatient follow up, to return to the emergency department if symptoms worsen or persist or if there are any questions or concerns that arise at home. Special discussion: Based on the patient's Hx, exam, and Dx evaluation, there is no indication for emergent surgery or inpatient Tx. It is understood by the patient/guardian that if the Sx's persist or worsen they need to return immediately for re-evaluation. I discussed with the patient/guardian in detail that at this point there is no indication for admission to the hospital. It is understood, however, that if the symptoms persist or worsen the patient needs to return immediately for re-evaluation. ED course: No acute findings on ct or bloodwork, punctate nephrolithiasis, could explain intermittent pain he has been having, will dc home with prn urology f/u.. 10/14 09:59 Order name: Basic Metabolic Panel; Complete Time: 10:57 rn 10/14 09:59 Order name: CBC with Diff; Complete Time: 10:57 rn 10/14 09:59 Order name: Hepatic Function; Complete Time: 10: rn 10/14 09:59 Order name: Lipase; Complete Time: 10: rn 10/14 09:59 Order name: IV Saline Lock; Complete Time: 10:17 rn 10/14 09:59 Order name: CT Abd/Pelvis - IV Contrast Only; Complete Time: 10: rn 10/14 09:59 Order name: Labs collected and sent; Complete Time: 10: rn Administered Medications: No medications were administered Disposition: 10/14/20 11:04 Discharged to Home. Impression: Nephrolithiasis. - Condition is Stable. - Discharge Instructions: Kidney Stones. - Medication Reconciliation Form, Thank You Letter, Antibiotic Education, Prescription Opioid Use, Work release form form. - Follow up: Mohamud Wright MD; When: As needed; Reason: Recheck today's complaints, Re-evaluation by your physician. - Problem is an ongoing problem. - Symptoms have improved. Signatures: Dispatcher [employer] EDSherrie Messer RN RN iw Nieto, Roman, MD MD rn Davies, Jonathon, RN RN jd3 Corrections: (The following items were deleted from the chart) 11:31 11:04 10/14/2020 11:04 Discharged to Home. Impression: Nephrolithiasis. Condition is jd3 Stable. Forms are Medication Reconciliation Form, Thank You Letter, Antibiotic Education, Prescription Opioid Use. Follow up: Mohamud Wright; When: As needed; Reason: Recheck today's complaints, Re-evaluation by your physician. Problem is an ongoing problem. Symptoms have improved. rn
--- NOTE | 2020-10-14 11:05 | ER ---
Nurse's Notes [facility] Name: Gatito Lyn Age: 45 yrs Sex: Male : 1975 Arrival Date: 10/14/2020 Time: 09:10 Bed 18 Private MD: Diagnosis: Nephrolithiasis Presentation: 10/14 09:22 Chief complaint: Patient states: left side pain for a while, recently gotten worse, had iw COVID in May and since then it's gotten worse, has been having bright red blood in his stool X 1 week. Coronavirus screen: At this time, the client does not indicate any symptoms associated with coronavirus-19. Ebola Screen: Patient negative for fever greater than or equal to 101.5 degrees Fahrenheit, and additional compatible Ebola Virus Disease symptoms Patient denies exposure to infectious person. Patient denies travel to an Ebola-affected area in the 21 days before illness onset. No symptoms or risks identified at this time. Initial Sepsis Screen: Does the patient meet any 2 criteria? No. Patient's initial sepsis screen is negative. Does the patient have a suspected source of infection? No. Patient's initial sepsis screen is negative. Risk Assessment: Do you want to hurt yourself or someone else? Patient reports no desire to harm self or others. Onset of symptoms was May 2021. 09:22 Method Of Arrival: Ambulatory iw 09:22 Acuity: LUCINDA 3 iw Historical: - Allergies: 09:24 No Known Allergies; iw - Home Meds: 09:24 None [Active]; iw - PMHx: 09:24 None; iw - PSHx: 09:24 Arm - Left; iw - Immunization history:: Adult Immunizations not up to date. - Social history:: Smoking status: Patient denies any tobacco usage or history of. - Family history:: not pertinent. - Hospitalizations: : No recent hospitalization is reported. Screenin:18 Abuse screen: Denies threats or abuse. Nutritional screening: No deficits noted. jd3 Tuberculosis screening: No symptoms or risk factors identified. Fall Risk Ambulatory Aid- None/Bed Rest/Nurse Assist (0 pts). Gait- Normal/Bed Rest/Wheelchair (0 pts) Mental Status- Oriented to own ability (0 pts). Total [place] Fall Scale indicates No Risk (0-24 pts). Assessment: 10:19 General: Appears in no apparent distress. comfortable, Behavior is calm, cooperative, jd3 appropriate for age. Pain: Complains of pain in abdomen Quality of pain is described as aching, tender. Neuro: Level of Consciousness is awake, alert, obeys commands, Oriented to person, place, time, situation. Cardiovascular: Denies chest pain, Capillary refill < 3 seconds Patient's skin is warm and dry. Respiratory: Airway is patent Respiratory effort is even, unlabored, Respiratory pattern is regular, symmetrical, Denies cough, shortness of breath. GI: Abdomen is flat, non-distended, Abd is soft and non tender X 4 quads. Reports diarrhea, unhealthy diet. : No signs and/or symptoms were reported regarding the genitourinary system. EENT: No signs and/or symptoms were reported regarding the EENT system. Derm: Skin is intact, Skin is dry, Skin is normal, Skin temperature is warm. Musculoskeletal: Circulation, motion, and sensation intact. Range of motion: intact in all extremities. 11:05 Reassessment: Patient appears in no apparent distress at this time. Patient and/or jd3 family updated on plan of care and expected duration. Pain level reassessed. Patient is alert, oriented x 3, equal unlabored respirations, skin warm/dry/pink. provider at bedside discussing plan of care. 11:29 Reassessment: Patient appears in no apparent distress at this time. Patient and/or jd3 family updated on plan of care and expected duration. Pain level reassessed. Patient is alert, oriented x 3, equal unlabored respirations, skin warm/dry/pink. Vital Signs: 09:22 BP 116 / 83; Pulse 77; Resp 16; Temp 97.8; Pulse Ox 98% on R/A; Weight 79.38 kg; Height iw 5 ft. 11 in. (180.34 cm); 11:30 Pulse 75; Resp 16 S; Pulse Ox 98% on R/A; jd3 09:22 Body Mass Index 24.41 (79.38 kg, 180.34 cm) iw ED Course: 09:10 Patient arrived in ED. ag5 09:24 Triage completed. iw 09:24 Arm band placed on. iw 09:42 Farooq Lobo MD is Attending Physician. rn 10:02 Gordon, Corey, RN is Primary Nurse. jd3 10:17 Inserted saline lock: 20 gauge in right antecubital area, using aseptic technique. jd3 Blood collected. 10:18 Patient has correct armband on for positive identification. Bed in low position. Call jd3 light in reach. Side rails up X 1. Adult w/ patient. Pulse ox on. NIBP on. 10:30 CT Abd/Pelvis - IV Contrast Only In Process Unspecified. EDMS 10:59 Mohamud Wright MD is Referral Physician. rn 11:30 No provider procedures requiring assistance completed. IV discontinued, intact, jd3 bleeding controlled, No redness/swelling at site. Pressure dressing applied. Administered Medications: No medications were administered Outcome: 11:04 Discharge ordered by MD. rn 11:30 Discharged to home ambulatory. jd3 11:30 Condition: stable 11:30 Discharge instructions given to patient, Instructed on discharge instructions, follow up and referral plans. Demonstrated understanding of instructions, follow-up care. 11:31 Patient left the ED. jd3 Signatures: Dispatcher [employer] EDSherrie Messer RN RN iw Nieto, Roman, MD MD rn Davies, Jonathon, RN RN jd3 Gaskin, Ajare ag5
[2020-10-14 11:39] VITALS: BP 116/83; TEMP 97.8; O2SAT 98
== END 2020-10-14 11:31 | disposition home or self-care (01) ==
LOC: ER 09:08
DX: N20.0 Calculus of kidney (principal)
CPT/HCPCS: 85025; 80048; 36415; 80076; 83690; 74177; 99284; Q9967